=== PATIENT | female | born 1935 | race Caucasian/White ===

== ENCOUNTER → 2017-11-09 12:24 | Outpatient (CLI) | payer MEDICARE, BC, SELFPAY ==
--- NOTE | 2017-11-09 12:49 | US_ITS ---
PROCEDURE: ULTRASOUND GUIDED THORACENTESIS. DATE: November 09, 2017.. INDICATION: Female, 82 years old. Left pleural effusion. PHYSICIAN: Brett Parker M.D. PROCEDURE: The risks, benefits, and alternatives to the procedure were explained to the patient. The specific risks of bleeding, infection, and pneumothorax requiring chest tube insertion were discussed and accepted. Written informed consent was obtained. Ultrasonographic evaluation of the left lower pleural space was carried out. An adequate pocket was identified. The patient was placed in the sitting, upright position. The overlying skin was prepped and draped in sterile fashion. 1% lidocaine was administered subcutaneously for local anesthesia. Under ultrasound guidance, a 6 Faroese thoracentesis needle/catheter system was advanced into the left posterior lower pleural fluid collection. Approximately 1200 mL of rodri-colored fluid was drained. The catheter was removed, and a sterile dressing was applied. The patient tolerated the procedure well. A chest x-ray was ordered. US/Thoracentesis W US IMPRESSION: Ultrasound-guided left thoracentesis. Electronically Signed: Brett Parker MD at 14:27 EST Tel [phone], Service support ,
[2017-11-09 13:03] LABS: International Normalized Ratio 1.4; Prothrombin Time (Protime)PT. 17.4 SECONDS (11.7-14.9)
--- NOTE | 2017-11-09 13:54 | RAD_ITS ---
STUDY: X-RAY CHEST REASON FOR EXAM: Female, 82 years old. Post left thoracentesis examination. TECHNIQUE: Frontal inspiration and expiration views were obtained. COMPARISON: None. FINDINGS: The patient is status post left thoracentesis. There is no pneumothorax. Persistent atelectasis and/or infiltrate is seen in the left lower lobe with blunting of left costophrenic angle. RAD/Chest Insp/Exp 2 View IMPRESSION: No evidence of pneumothorax following the left thoracentesis. Electronically Signed: Brett Parker MD at 14:13 EST Tel [phone], Service support ,
== END ==
PROVIDERS: Family Provider Family Medicine Geriatric Medicine; PCP Family Medicine Geriatric Medicine; Visit Provider Internal Medicine Hematology & Oncology
DX: Z79.01 Long term (current) use of anticoagulants (principal); J91.0 Malignant pleural effusion
CPT/HCPCS: 32555; 36415; 71046; 85610

== ENCOUNTER → 2017-11-13 10:08 | Outpatient (CLI) | payer MEDICARE, BC, SELFPAY | PROVIDERS: Family Provider Family Medicine Geriatric Medicine; PCP Family Medicine Geriatric Medicine; Visit Provider Internal Medicine Hematology & Oncology | DX: Z45.2 Encounter for adjustment and management of vascular access device (principal) | CPT/HCPCS: 96523; A4216 ==

== ENCOUNTER 2017-11-17 11:37 | Day surgery (SDC) | payer MEDICARE, BC, SELFPAY ==
[2017-11-17] VITALS (7 sets, daily range): BP systolic 111–137; BP diastolic 59–76; PULSE 54–64; RESP 16–18; TEMP 35.8–36.4; O2SAT 92–97; BMI 27.1
[2017-11-17 12:16] LABS: Prothrombin Time Fingerstick 18.8 SEC (11.9-14.4)
[2017-11-17 12:45] LABS: Bedside Glucose 187 mg/dL (70-110)
[2017-11-17] MEDS: Clindamycin 600 MG/50 ML BAG 100 MG IV (12:58)
[2017-11-17] MEDS: Bupivacaine Mpf 0.5% 30 ML VIAL (13:15)
--- NOTE | 2017-11-17 13:35 | OP.PCM_ITS ---
Report of Operation Date of Procedure: 11/17/17 Pre-Operative Diagnosis: left malignant pleural effusion Post-Operative Diagnosis: left malignant pleural effusion Surgery/Procedure Performed:: left ultrasound guided tunnelled pleural/pleurex catheter training and quality manager: None Type of Anesthesia:: MAC Anesthesiologist: Mathieu Crook - ASA3 Specimen's removed: 1500 cc left pleural fluid Estimated Blood Loss (mL): minimal Fluids Replaced: 500 Description of Procedure: The patient was brought to the operating suite. The left chest site was marked in the holding area and the patient concurred this was the planned operative site. Sign was performed verifying patient, site, position, skip antibiotic prophylaxis-2 g of Ancef and DVT prophylaxis with SCDs. Ultrasound was used to evaluate the left thoracic space and pleural fluid was noted to be at the planned site which was marked on the skin Following IV sedation, left chest and upper lateral abdomen were prepped and draped in the usual fashion. Timeout was performed verifying patient, site, position. Local anesthetic was injected and a Seldinger needle was used to access the left/right pleural space without difficulty. a guidewire was inserted and advanced into the pleural space. Local anesthetic was injected and incision made for the catheter exit site. Next the catheter was tunneled from the skin exit site to the wire. Dilators were placed over the wire until the largest dilator with introducer sheath were placed. The wire and dilator removed. The catheter was fed through the introducer suture sheath and adjusted to the edge of the pleural surface with the fenestrations . There was good return of pleural fluid. The Pleurx catheter was affixed to an adapter and attached to a Pleur-evac at 20 cm suction. A total of approximately 1500 cc of fluid was drained. The catheter was secured with a 3-0 silk suture at the skin exit site. The thoracic site. Skin was closed with 4-0 Biosyn interrupted subcuticular sutures. Dermabond was applied to the thoracic site. A dressing was applied. The joints were taped and a large dressing placed over the drain exit site. The patient was brought to recovery room in stable condition with plans for a postprocedure chest x-ray. - Admit VTE Documentation VTE Present on Admission: No VTE Mechan Device Prophylaxis: SCD's
--- NOTE | 2017-11-17 13:36 | RAD_ITS ---
STUDY: X-RAY CHEST REASON FOR EXAM: Female, 82 years old. Left-sided chest tube placement. TECHNIQUE: Single AP portable view of the chest. COMPARISON: Comparison is made with prior study dated November 09, 2017. FINDINGS: A left-sided small caliber chest tube is seen paralleling the left hemidiaphragm. The tip is along the medial aspect of the left lower hemithorax. Mild increased markings at the left lung base suggestive of left basilar atelectasis. There is blunting of the right costophrenic angle. The right lung is clear. Normal size heart. Normal mediastinum and alesia. Normal visualized pulmonary arteries. There is atherosclerotic calcification of the aortic arch with tortuosity. There are diffuse degenerative changes of the visualized thoracic spine. Normal visualized ribs, clavicles, and shoulders. There is no demonstrated abnormality of the visualized soft tissue structures of the upper abdomen. RAD/Chest 1 View (Portable) IMPRESSION: A small caliber left-sided chest tube is seen paralleling the left hemidiaphragm. Pleural-parenchymal changes at the left lung base. These have improved as compared to prior examination. Electronically Signed: Brett Parker MD at 14:15 EDT Tel [phone], Service support ,
[2017-11-17 13:51] LABS: Bedside Glucose 177 mg/dL (70-110)
[2017-11-17] MEDS: Ibuprofen 400 MG Tablet PO (17:09)
[2017-11-17 20:51] LABS: Bedside Glucose 181 mg/dL (70-110)
[2017-11-17] MEDS: Pravastatin 80 MG Tablet PO (22:01)
[2017-11-17] MEDS: Zolpidem Tartrate 5 MG Tablet PO (22:01)
[2017-11-18 02:00] VITALS: BP 131/56; PULSE 58; RESP 16; TEMP 36.4; O2SAT 95
--- NOTE | 2017-11-18 06:00 | RAD_ITS ---
STUDY: X-RAY CHEST REASON FOR EXAM: Female, 82 years old. Pleural effusion TECHNIQUE: Single AP portable view of the chest. COMPARISON: 11/17/2017. FINDINGS: Left chest tube remains in place. The lungs are clear and expanded. Small left effusion. Normal size heart. Normal mediastinum and alesia. Normal visualized pulmonary arteries. Normal visualized aortic arch and descending thoracic aorta. Normal visualized thoracic spine. Normal visualized ribs, clavicles, and shoulders. There is no demonstrated abnormality of the visualized soft tissue structures of the upper abdomen. RAD/Chest 1 View (Portable) IMPRESSION: Stable small left effusion. Left chest tube in place. Electronically Signed: Toñito Pillai DO at 6:13 EDT , Service support ,
[2017-11-18] MEDS: Levothyroxine 100 MCG Tablet PO (06:20)
[2017-11-18] MEDS: Ibuprofen 400 MG Tablet PO ×2 (06:21→13:49)
[2017-11-18] MEDS: Lactated Ringers 1,000 ML 30 ML IV (06:31)
--- NOTE | 2017-11-18 07:44 | NURSING ---
Dr. Tubbs in to see this patient. Per Dr. Tubbs, I capped her off and she can go home later. Doctor Suly wants Mrs. Zavala to try one oxy before she goes home to make sure there are no side effects from it.
--- NOTE | 2017-11-18 07:57 | PCM.DC ---
You will use the following diet at home:: No restrictions Discharge Activity: Return to Normal Activity, May not drive while taking narcotic pain medications. Call your doctor if your incision/area has: Continuous Slow Oozing, Increased Redness, Foul Smelling Discharge, Swelling at the incision site Call your doctor if you observe: Fever of 101 or Higher Allergies/Adverse Reactions: Allergies Penicillins [PCN] Allergy (Verified 11/16/17 15:06) Rash Sulfa (Sulfonamide Antibiotics) Allergy (Verified 11/16/17 15:06) Rash rosuvastatin [From Crestor] Adverse Reaction (Mild, Verified 11/16/17 15:06) Other codeine Adverse Reaction (Verified 11/16/17 15:06) Other [employer] hydrocodone Adverse Reaction (Verified 11/16/17 15:06) Other FAST HEART RATE Medications to take at Discharge warfarin 2 mg tablet 4 mg PO SUMOTUTHFRSA 10/02/17 Atenolol [Tenormin (beta obed)] 50 mg PO DAILY 11/16/17 Calcium Carbonate [Calcium] 600 mg PO DAILY 11/16/17 Ergocalciferol [Vitamin D] 50,000 unit PO Q7D 11/16/17 Levothyroxine [Synthroid] 100 mcg PO DAILY 11/16/17 [place]-3 Fatty Acids [Fish Oil] 600 mg PO DAILY 11/16/17 Pravastatin [Pravachol] 80 mg PO QHS 11/16/17 Warfarin [Coumadin] 2 mg PO WE 11/16/17 Zolpidem Tartrate [Ambien] 5 mg PO QHS PRN PRN 11/16/17 Calcium (Elemental) [Os-Manuel 500] 500 mg PO DAILY@1200 tablet 11/18/17 Ibuprofen [Motrin] 400 mg PO Q4H PRN PRN tablet 11/18/17 Oxycodone [Oxyir] 5 mg PO Q4H PRN PRN #16 tab 11/18/17 The following prescriptions were given: Oxycodone [Oxyir] 5 mg PO Q4H PRN PRN #16 tab PRN Reason: Severe Pain (6-10) Primary Care Physician: Tj Martin Chi, MD [Primary Care Provider] - Please Follow Up With: Vitaly Tubbs MD - bring pleurex kits to office When: monday
[2017-11-18 08:35] VITALS: PULSE 58
[2017-11-18] MEDS: oxyCODONE 5 MG Tablet PO (08:46)
[2017-11-18] MEDS: Atenolol 50 MG Tablet PO (08:58)
[2017-11-18 09:03] VITALS: BP 147/63; PULSE 58; RESP 20; TEMP 36.9; O2SAT 96
--- NOTE | 2017-11-18 09:03 | PCM.DC.SUM ---
Discharge Date and Diagnosis Date of Admission: 11/17/17 Date of Discharge: 11/18/17 - Primary Discharge Diagnosis left lung cancer. Left malignant pleural effusion Hospital Course and Treatment Imaging Results: 11/18/17 06:00 CXR [Chest 1 View (Portable)] [RAD] Urgent Operations: - - left tunneled thoracic catheter placement Summary of Care Provided: The patient is a 82 year old F with recurring left pleural effusion who is admitted for left tunneled thoracic catheter placement. 1500 cc of fluid was drained during the operative procedure. An additional 200 cc was drained overnight with the pleural tube placed on 20 mm suction. The patient is doing well postoperatively and able to be discharged home today with plans to follow-up in my office on Monday for Pleurx bottle drainage. Discharge Activity: Return to Normal Activity, May not drive while taking narcotic pain medications. Call your doctor if your incision/area has: Continuous Slow Oozing, Increased Redness, Foul Smelling Discharge, Swelling at the incision site Call your doctor if you observe: Fever of 101 or Higher Home Medications: Medications to take at Discharge warfarin 2 mg tablet 4 mg PO SUMOTUTHFRSA 10/02/17 Atenolol [Tenormin (beta obed)] 50 mg PO DAILY 11/16/17 Calcium Carbonate [Calcium] 600 mg PO DAILY 11/16/17 Ergocalciferol [Vitamin D] 50,000 unit PO Q7D 11/16/17 Levothyroxine [Synthroid] 100 mcg PO DAILY 11/16/17 [place]-3 Fatty Acids [Fish Oil] 600 mg PO DAILY 11/16/17 Pravastatin [Pravachol] 80 mg PO QHS 11/16/17 Warfarin [Coumadin] 2 mg PO WE 11/16/17 Zolpidem Tartrate [Ambien] 5 mg PO QHS PRN PRN 11/16/17 Calcium (Elemental) [Os-Manuel 500] 500 mg PO DAILY@1200 tablet 11/18/17 Ibuprofen [Motrin] 400 mg PO Q4H PRN PRN tablet 11/18/17 Oxycodone [Oxyir] 5 mg PO Q4H PRN PRN #16 tab 11/18/17 Following Prescrptions Were Given to Patient: Oxycodone [Oxyir] 5 mg PO Q4H PRN PRN #16 tab PRN Reason: Severe Pain (6-10/10) Primary Care Physician: Tj Martin Chi, MD [Primary Care Provider] - Please Follow Up With: Vitaly Tubbs MD - bring pleurex kits to office When: monday Medical Necessity - Tobacco Use Smoking Status: Never smoker Meaningful Use Info Meaningful Use Diagnoses (Choose all that apply): None applicable
[2017-11-18 09:35] VITALS: BP 97/57; PULSE 47; RESP 14; TEMP 36.9; O2SAT 96
--- NOTE | 2017-11-18 09:44 | NURSING ---
Pt felt woozy after walking to the bathroom. CLEANING PORTER was with pt and pt started to pass out in front of coordinator of genetic services. This nurse came in room and was already talking again. Did not like the feeling of the pain medication that it was giving her. BP was taken while sitting up on the toilet. 97/57, Hr 50. Pt assisted into wc and on the way to bed, pt passed out again. Layed in bed, Positioned bed in [place] position and applied O2 at 2L via NC. Pt awakened after several seconds, talking to staff. Pt also broke out in a sweat while on toilet. This nurse in room with pt at this time.
[2017-11-18 09:51] VITALS: BP 119/52; PULSE 48; RESP 15; TEMP 36.9; O2SAT 96
--- NOTE | 2017-11-18 10:14 | NURSING ---
DR. Tubbs aware that pt passed out. 500cc bolus ordered at this time.
[2017-11-18] MEDS: Lactated Ringers 500 ML 999 ML IV (10:50)
== END 2017-11-18 14:09 | disposition home or self-care (01) ==
LOC: SDC 11:37 → AC 11:43 → MS3 13:14
PROVIDERS: Family Provider Family Medicine Geriatric Medicine; PCP Family Medicine Geriatric Medicine; Visit Provider Surgery
PROC: (CPT 32550; principal; 2017-11-17 12:20)
DX: Z46.82 Encounter for fitting and adjustment of non-vascular catheter (principal); C34.92 Malignant neoplasm of unspecified part of left bronchus or lung; J91.0 Malignant pleural effusion; E11.9 Type 2 diabetes mellitus without complications; I48.0 Paroxysmal atrial fibrillation; I10 Essential (primary) hypertension; I27.20 Pulmonary hypertension, unspecified; Z86.73 Personal history of transient ischemic attack (TIA), and cerebral infarction without residual deficits; E78.00 Pure hypercholesterolemia, unspecified; Z79.899 Other long term (current) drug therapy; Z79.01 Long term (current) use of anticoagulants
CPT/HCPCS: 00520; 32550; 36416; 71045; 82962; 85610; J7120; A4216; C1729

== ENCOUNTER → 2017-11-20 09:31 | Outpatient (CLI) | payer MEDICARE, BC, SELFPAY ==
--- NOTE | 2017-11-20 09:00 | PET_ITS ---
EXAMINATION: FDG PET-CT INDICATIONS: An 82-year-old female with reported history of carcinoma of the lung presenting for initial staging examination. COMPARISON EXAMINATION: None available INDEX LESION SIZE SUV INTERPRETATION Left mid anterior hemithorax pulmonary parenchyma, left upper lobe 15.3-mm (frame 213) 2.5 Fulfills quantitative criteria for viable neoplasm NON-INDEX LESION SIZE SUV INTERPRETATION Left hemithorax pleural interface 1.7 Quantitative criteria for viable neoplasm are not fulfilled TECHNIQUE: Following the intravenous administration of 14.92 mCi of F-18 deoxyglucose via the right antecubital fossa, multiplanar image acquisitions of the neck, chest, abdomen and pelvis to level of mid thigh, obtained at one hour post radiopharmaceutical administration contemporaneously interpreted with the current CT of the neck, chest, abdomen and pelvis, to level of mid thigh, dated 11/20/17 via coregistration reveals: Blood glucose level:?? 152 mg/dl?Height:?66 inches?Weight: 170 lbs. FINDINGS: 1. A nodular focus of enhanced glucose metabolism is demonstrated in the left mid anteromedial hemithorax pulmonary parenchyma, left upper lobe, generating a corrected maximum calculated standard uptake value of 2.5. The maximal axial diameter of the corresponding parenchymal density on review of CT of the thorax dated 11/20/17 is 15.3-mm (transverse). 2. An increase in glucose metabolism is diffusely apparent throughout the left hemithorax at the pleural interface generating a corrected maximum calculated standard uptake value of 1.7. 3. Normal physiologic distribution of the radiopharmaceutical is apparent in the hepatic (3.6) and splenic parenchyma, both renal units, bladder and visualized intestinal tract. The visualized portion of the cerebral cortex demonstrate symmetric and preserved glucose metabolism. Diffuse radiopharmaceutical concentration is noted in all four quadrants of the abdomen and pelvis. Pertinent CT findings are as follows: CHEST: Emphysematous change is noted in the bilateral upper-mid lung zones. A loculated left hemithorax pleural effusion demonstrates no evidence of quantitatively significant increased glucose metabolism. There is atherosclerotic calcification defined in the thoracic aorta without evidence of dilatation-aneurysm formation. Coronary arterial calcification is observed. Right-left axillary soft tissue densities with fatty hilus formation are non-glucose avid. There are no additional parenchymal densities-nodules noted in the right-left hemithorax manifesting quantitatively significant increased glucose metabolism. Catheter placement is noted within the left hemithorax. ABDOMEN AND PELVIS: Retained oral contrast material is noted in the visualized intestinal tract. There is atherosclerotic calcification defined in the abdominal aorta without evidence of dilatation-aneurysm formation. Pelvic arterial calcification is noted. Calcified granuloma formation is evident in the hepatic parenchyma. Right-left inguinal soft tissue densities are ametabolic. SKELETAL: Degenerative changes are noted in the cervical, thoracic and lumbar spine. PET/PET/CT Tumor Base -Thigh Init IMPRESSION: 1. ABNORMAL EXAMINATION INDICATIVE OF MALIGNANT VIABLE NEOPLASM. 2. Increased glucose concentration observed in the left hemithorax pulmonary parenchyma, left upper lobe, fulfills quantitative criteria for viable neoplasm. (Ramirez et al, Annals of Internal Medicine, 138:724, 2003). 3. Enhanced glucose concentration observed in the left hemithorax at the pleural interface does not fulfill quantitative criteria for viable neoplasm. (Cardoso, et al, Chest 122:1918, 2002). Electronic Signature Vitaly Lovell D.O. Electronically Signed: Vitaly Lovell DO at 23:20 EDT Tel , Service support ,
== END ==
PROVIDERS: Family Provider Family Medicine Geriatric Medicine; PCP Family Medicine Geriatric Medicine; Visit Provider Internal Medicine Hematology & Oncology
DX: C33 Malignant neoplasm of trachea (principal); C34.90 Malignant neoplasm of unspecified part of unspecified bronchus or lung; J91.0 Malignant pleural effusion
CPT/HCPCS: 78815; A9552; A4216

== ENCOUNTER → 2018-01-01 09:52 | Outpatient (CLI) | payer MEDICARE, BC, SELFPAY ==
[2018-01-01 10:20] LABS: International Normalized Ratio 1.6; Prothrombin Time (Protime)PT. 19.1 SECONDS (11.7-14.9)
== END ==
PROVIDERS: Family Provider Family Medicine Geriatric Medicine; PCP Family Medicine Geriatric Medicine; Visit Provider Family Medicine Geriatric Medicine
DX: I48.2 Chronic atrial fibrillation (principal); Z79.01 Long term (current) use of anticoagulants; C33 Malignant neoplasm of trachea; C34.80 Malignant neoplasm of overlapping sites of unspecified bronchus and lung; E03.9 Hypothyroidism, unspecified
CPT/HCPCS: 85610

== ENCOUNTER → 2018-02-12 11:08 | Outpatient (CLI) | payer MEDICARE, BC, SELFPAY ==
--- NOTE | 2018-02-12 11:08 | DT_ITS ---
This patient was seen during an EMR downtime February 05, 2018 - February 12, 2018. This patient may have a combination of paper and electronic documentation or all paper documentation. All documentation is viewable within the e-chart portion of [facility] for each patient visit.
[2018-02-12 11:25] LABS: International Normalized Ratio 1.8; Prothrombin Time (Protime)PT. 20.5 SECONDS (11.7-14.9)
== END ==
PROVIDERS: Visit Provider Internal Medicine Hematology & Oncology
DX: I48.2 Chronic atrial fibrillation (principal); Z79.01 Long term (current) use of anticoagulants
CPT/HCPCS: 85610

== ENCOUNTER → 2018-03-02 12:12 | Outpatient (CLI) | payer MEDICARE, BC, SELFPAY ==
[2018-03-02 12:59] LABS: International Normalized Ratio 2.2; Prothrombin Time (Protime)PT. 24.5 SECONDS (11.7-14.9)
== END ==
PROVIDERS: Visit Provider Internal Medicine Hematology & Oncology
DX: C33 Malignant neoplasm of trachea (principal); C34.80 Malignant neoplasm of overlapping sites of unspecified bronchus and lung; I47.1 Supraventricular tachycardia
CPT/HCPCS: 85610

== ENCOUNTER → 2018-03-26 10:30 | Outpatient (CLI) | payer MEDICARE, BC, SELFPAY ==
[2018-03-26 10:45] LABS: International Normalized Ratio 2.3; Prothrombin Time (Protime)PT. 25.2 SECONDS (11.7-14.9)
== END ==
PROVIDERS: Visit Provider Internal Medicine Hematology & Oncology
DX: C33 Malignant neoplasm of trachea (principal); C34.80 Malignant neoplasm of overlapping sites of unspecified bronchus and lung; J91.0 Malignant pleural effusion
CPT/HCPCS: 85610

== ENCOUNTER → 2018-07-04 09:40 | Outpatient (CLI) | payer MEDICARE, BC, SELFPAY ==
[2018-07-04 12:31] LABS: Absolute Lymphocyte Count 2.42 X10^3/ul (0.83-4.51); Absolute Neutrophil Count 8.6 X10^3/uL (2.0-7.7); Basophil# 0.01 X10^3/uL; Basophil% 0.1 % (0-1); Hematocrit 40.9 % (37-47); Hemoglobin 13.2 g/dl (12.0-15.0); Lymphocyte # 2.42 X10^3/ul (4.0); Lymphocyte % 20.5 % (19-41); Mean Corp Hgb Conc 32.3 g/gl (32-36); Mean Platelet Vol. 10.1 fl (6.2-12.0); Monocyte# 0.82 X10^3/uL; Monocyte% 6.9 % (0-10); Neutrophil # 8.55 X10^3/uL (2.7-7.7); Neutrophil % 72.3 % (47-70); Platelet Count 379 K/mm3 (150-450); RBC Distribution Width CV 13.8 % (11.6-14.6); RBC Distribution Width SD 47.8 fl (35.1-43.9); Red Blood Count 4.26 M/mm3 (4.2-5.4); White Blood Count 11.8 K/mm3 (4.4-11.0)
[2018-07-04 12:34] LABS: POSITIVE COUNT NO; POSITIVE DIFFERENTIAL NO; POSITIVE MORPHOLOGY NO
[2018-07-04 12:51] LABS: Vitamin D,25 Hydroxy 77.2 ng/mL (29.95-100.01)
[2018-07-04 13:14] LABS: ALB/GLOB Ratio 0.8 RATIO (0.9-2.4); AST(SGOT) 22 U/L (15-37); Alanine Aminotransfer ALT/SGPT 37 U/L (13-56); Albumin, Serum 2.9 g/dL (3.2-5.0); Alkaline Phosphatase 96 U/L (45-117); Anion Gap 9 (5-15); BUN 19 mg/dL (7-18); BUN/Creat Ratio 21.6 RATIO (10-20); Calcium,Total 8.6 mg/dL (8.5-10.1); Chloride 99 mmol/L (98-107); Creatinine, Serum 0.88 mg/dL (0.55-1.02); EST Glomerular Filtration Rate 66 mL/min (>60); Est Glom Filt Rate - Afr Amer 79 mL/min (>60); Globulin 3.8 g/dL (2.2-4.2); Glucose 103 mg/dL (74-106); Protein, Total 6.7 g/dL (6.4-8.2); Sodium Level 137 mmol/L (136-145); Thyroid Stim Hormone (TSH) 0.59 uIU/mL (0.358-3.74)
== END ==
PROVIDERS: Visit Provider Family Medicine Geriatric Medicine
DX: E11.9 Type 2 diabetes mellitus without complications (principal); E55.9 Vitamin D deficiency, unspecified; I10 Essential (primary) hypertension
CPT/HCPCS: 36415; 80053; 82306; 84443; 85025

== ENCOUNTER → 2018-11-20 09:17 | Outpatient (CLI) | payer MEDICARE, BC, SELFPAY ==
[2018-09-27 14:29] VITALS: BMI 25.4
[2018-11-20 09:43] LABS: International Normalized Ratio 1.7; Prothrombin Time (Protime)PT. 20.2 SECONDS (11.7-14.9)
== END ==
PROVIDERS: Referring Provider Internal Medicine Hematology & Oncology; Visit Provider Internal Medicine Hematology & Oncology
DX: I47.1 Supraventricular tachycardia (principal)
CPT/HCPCS: 85610

== ENCOUNTER → 2018-12-12 08:10 | Outpatient (CLI) | payer MEDICARE, BC, SELFPAY ==
[2018-09-27 14:29] VITALS: BMI 25.4
--- NOTE | 2018-12-12 | FLU_PTH ---
PATIENT: CUBA DAMIAN LOC: [facility] U#:[id number] AGE/SX: 89/F ROOM: RE12/12/[address]: Dr. Sukhwinder Murrieta MD : [id number] BED: DIS: SPEC #: [id number] RECD: 12/12/18 17:20 STATUS: BREN EITAN #: [id number] TAHMINA: 12/12/18 00:[address]: Sukhwinder Murrieta DEPT: CYTOLOGY RECD BY: Tre Myers Tissues: Neck, NOS Procedures: Special Stain Group II Surgery Specimen Level IV Cytospin Fluid HEADER OPERATION: Not noted PRE-OP DIAGNOSIS: Left neck mass; history of lung adenocarcinoma TISSUE SUBMITTED: Left neck mass fluid for cytology DIAGNOSIS CYTOLOGY Fine needle aspiration, left neck mass (cytospin and cell block): Negative for malignant cells. See comment. AM:marcin 12/14/18 COMMENT The specimen contains blood and scattered white blood cells. Clinical correlation is necessary. CYTOLOGY STUDY Slides are reviewed. CYTOLOGY GROSS Received is 30 ml of red cloudy fluid labeled with the patient's name and and designated per the requisition as left neck mass. Submitted for cytology preparation including cell block. / 12/13/18 TC:5 CPT: 90899, 16805
== END ==
PROVIDERS: Referring Provider Otolaryngology; Visit Provider Otolaryngology
DX: R22.1 Localized swelling, mass and lump, neck (principal); Z85.118 Personal history of other malignant neoplasm of bronchus and lung
CPT/HCPCS: 88108; 88305; 88313

== ENCOUNTER 2018-12-14 15:03 | Emergency (ER) | payer MEDICARE, BC, SELFPAY ==
[2018-09-27 14:29] VITALS: BMI 25.4
[2018-12-14 15:03] VITALS: BP 145/104; PULSE 79; RESP 18; TEMP 36.7; O2SAT 94; BMI 25.2
--- NOTE | 2018-12-14 15:09 | RAD_ITS ---
STUDY: X-RAY CHEST REASON FOR EXAM: Female, 83 years old. Cough. TECHNIQUE: PA and lateral views of the chest. COMPARISON: Comparison is made with prior study dated November 18, 2017. FINDINGS: Hyperinflation. Mild residual increased markings at the lung bases suggestive of scarring. No acute infiltration is seen. Scattered calcified granulomas. Stable blunting of the costophrenic angles bilaterally. Normal size heart. Normal mediastinum and alesia. Normal visualized pulmonary arteries. Normal visualized aortic arch and descending thoracic aorta. There are diffuse degenerative changes of the visualized thoracic spine. Normal visualized ribs, clavicles, and shoulders. There is no demonstrated abnormality of the visualized soft tissue structures of the upper abdomen. RAD/Chest PA and Lateral IMPRESSION: Hyperinflation. Findings suggestive of scarring at the lung bases with blunting of both costophrenic angles. Electronically Signed: Brett Parker, at 15:36 EDT , Service support ,
[2018-12-14 15:47] VITALS: BP 158/70; RESP 14; O2SAT 97
[2018-12-14 15:48] VITALS: O2SAT 97
--- NOTE | 2018-12-14 15:51 | VDLE_ITS ---
Reason For Study: PAIN RIGHT LEFT GSV is normal. GSV is normal. CFV is compressible, spontaneous, phasic, CFV is compressible, spontaneous, phasic, competent and demonstrates normal competent, and demonstrates normal augmentation. augmentation. FV is compressible, spontaneous, phasic, FV is compressible, spontaneous, phasic, competent and demonstrates normal competent and demonstrates normal augmentation. augmentation. POP V is compressible, spontaneous, phasic, POP V is compressible, spontaneous, phasic, competent and demonstrates normal competent and demonstrates normal augmentation. augmentation. T/P Trunk is compressible. Left T/P Trunk is dilated and PTV is compressible. NONCOMPRESSIBLE. RT PeroV is dilated and NONCOMPRESSIBLE. Left PTV and PeroV are dilated and RT SSV is dilated and NONCOMPRESSIBLE. NONCOMPRESSIBLE. Procedure Left Gastroc V is dilated and Exam performed portable in ED. NONCOMPRESSIBLE. A preliminary report was called and/or faxed to ED. Interpretation Summary Acute deep venous thrombosis right peroneal Superficial thrombophlebitis right small saphenous vein Acute deep venous thrombosis left tibioperoneal trunk, posterior tibial, peroneal and gastrocnemius veins. Patent and compressible bilateral great saphenous veins. Ordering Physician: Amber Zazueta Performed By: Ashlyn Fiore RDCS, RVT
--- NOTE | 2018-12-14 15:51 | EKG12_ITS ---
Test Reason : SOB Blood Pressure : / mmHG Vent. Rate : 079 BPM Atrial Rate : 079 BPM P-R Int : 204 ms QRS Dur : 074 ms QT Int : 396 ms P-R-T Axes : 046 042 045 degrees QTc Int : 454 ms Normal sinus rhythm Normal ECG Confirmed by JOHNNY BERG ([id number]), supervising film or videotape editor ANDERSON CAGE ([id number]) on 12/17/2018 4:43:18 PM Referred By: KALEB/DEEPAK Confirmed By:JOHNNY BERG
--- NOTE | 2018-12-14 15:55 | ED.DCSUM_ITS ---
- ER Visit Summary Date of Service: 12/14/18 Chief Complaint: Shortness of breath History of Present Illness: The patient is a 83 F presenting with shortness of breath. She states this has been ongoing for the past 2 days. Cough is worsened with laying flat. Symptoms are not worsened with exertion. She has history of lung cancer and is on Keytruda. She states they held her last dose due to her cough and diarrhea. She has been having diarrhea once a day for the past 3 weeks. She states she takes Imodium once a day. She had chemotherapy-induced pneumonitis approximately 5 months ago. This was treated with prednisone. She is not on home O2. She denies chest pain or fever. She has had a dry cough. Denies abdominal pain, nausea, vomiting. Denies blood in her stool. Denies other complaints. Physical Examination: Vitals are stable. Patient is afebrile. Alert no acute distress. 97% on room air. HEENT exam is unremarkable. Neck is supple. Lungs are clear and equal bilaterally. Heart is regular rate and rhythm. Abdomen is soft nontender nondistended. Extremities are mild bilateral calf tenderness. Normal pulses Skin is warm and dry. No focal neurologic deficit. Remainder of exam is unremarkable. Emergency Department Course and Treatment: EKG is sinus rate of 79 with no acute ischemic changes. Chest x-ray shows hyperinflation. Findings suggestive of scarring at the lung bases with blunting of both costophrenic angles. CBC, chemistries unremarkable other than glucose 279. INR 1.9. Troponin negative. BNP 82.2. With ambulation her pulse ox is 94% on room air. Venous Doppler bilateral lower extremity shows DVT below the knee bilaterally. Patient denies chest pain. She is not hypoxic or tachycardic in the emergency department. Discussed with Dr. Rios. She was offered admission. She declines and states she needs to care for her . She was started on Eliquis 5 mg twice daily per Dr. Rios as well as doxycycline for bronchitis. She is advised to return to the ED if she has any worsening complaints. Advised to follow-up with Dr. Rios. Disposition: Discharge home Impression: Dyspnea, bronchitis, bilateral lower extremity DVT This note was generated with Tel[employer] software. It may contain incorrect words, spelling, and punctuation that were not noted in review of the chart prior to signing ED Disposition - Plan for ED Patient: Instructions: Acute Bronchitis, ED DVT Prescriptions: Apixaban [Eliquis] 5 mg PO BID #60 tablet Doxycycline 100 mg PO BID #20 capsule Referrals: Gayatri Duque MD [Primary Care Provider] - Humberto Rios DO [STAFF PHYSICIAN] -
[2018-12-14 16:02] VITALS: O2SAT 94
[2018-12-14 16:28] LABS: Absolute Lymphocyte Count 1.61 X10^3/ul (0.83-4.51); Absolute Neutrophil Count 7.8 X10^3/uL (2.0-7.7); Basophil# 0.04 X10^3/uL; Basophil% 0.4 % (0-1); Eosinophil# 0.29 X10^3/uL; Eosinophils% 2.7 % (0-5); Hematocrit 38.6 % (37-47); Hemoglobin 12.9 g/dl (12.0-15.0); Lymphocyte # 1.61 X10^3/ul (4.0); Lymphocyte % 15.2 % (19-41); Mean Corp Hgb Conc 33.4 g/gl (32-36); Mean Corpuscular Hgb 30.3 pg (27.0-32.0); Mean Corpuscular Volume 90.6 fL (81-99); Mean Platelet Vol. 9.3 fl (6.2-12.0); Monocyte# 0.86 X10^3/uL; Monocyte% 8.1 % (0-10); Neutrophil # 7.79 X10^3/uL (2.7-7.7); Neutrophil % 73.5 % (47-70); Platelet Count 293 K/mm3 (150-450); RBC Distribution Width CV 12.9 % (11.6-14.6); RBC Distribution Width SD 42.3 fl (35.1-43.9); Red Blood Count 4.26 M/mm3 (4.2-5.4); White Blood Count 10.6 K/mm3 (4.4-11.0)
[2018-12-14 16:29] LABS: POSITIVE COUNT NO; POSITIVE DIFFERENTIAL NO; POSITIVE MORPHOLOGY NO
[2018-12-14 16:45] VITALS: BMI 25.2
[2018-12-14 16:51] LABS: Anion Gap 5 (5-15); BUN 12 mg/dL (7-18); BUN/Creat Ratio 13.3 RATIO (10-20); Calcium,Total 8.5 mg/dL (8.5-10.1); Chloride 104 mmol/L (98-107); EST Glomerular Filtration Rate 63 mL/min (>60); Est Glom Filt Rate - Afr Amer 77 mL/min (>60); Estimated Creatinine Clearance 45.12 ml/min; Glucose 279 mg/dL (74-106); Potassium 4.1 mmol/L (3.5-5.1); Sodium Level 138 mmol/L (136-145)
[2018-12-14 16:56] LABS: BNP,B-Type NATRIURETIC PEPTIDE 82.2 pg/mL (0-100)
[2018-12-14 17:31] LABS: International Normalized Ratio 1.9; Prothrombin Time (Protime)PT. 21.6 SECONDS (11.7-14.9)
[2018-12-14 18:08] VITALS: PULSE 71; RESP 19; O2SAT 95
--- NOTE | 2018-12-14 18:28 | ED.DEP ---
ED Disposition - Plan for ED Patient: Instructions: ED DVT, Acute Bronchitis Prescriptions: Apixaban [Eliquis] 5 mg PO BID #60 tablet Doxycycline 100 mg PO BID #20 capsule Referrals: Gayatri Duque MD [Primary Care Provider] - Humberto Rios DO [STAFF PHYSICIAN] -
[2018-12-14] MEDS: Doxycycline 100 MG CAPSULE PO (18:35)
--- NOTE | 2018-12-14 18:41 | ED.DEP ---
ED Disposition - Plan for ED Patient: Instructions: Acute Bronchitis, ED DVT Prescriptions: Benzonatate [Tessalon Perle] 200 mg PO TID PRN PRN #20 capsule PRN Reason: Cough Apixaban [Eliquis] 5 mg PO BID #60 tablet Doxycycline 100 mg PO BID #20 capsule Referrals: Gayatri Duque MD [Primary Care Provider] - Humberto Rios DO [STAFF PHYSICIAN] -
[2018-12-14] MEDS: APIXABAN 5 MG TABLET PO (19:17)
[2018-12-14 19:18] VITALS: BP 166/67; PULSE 71; RESP 18; O2SAT 96
== END 2018-12-14 19:19 | disposition home or self-care (01) ==
PROVIDERS: Emergency Provider Emergency Medicine; Family Provider Family Medicine; PCP Family Medicine
DX: I82.493 Acute embolism and thrombosis of other specified deep vein of lower extremity, bilateral (principal); J40 Bronchitis, not specified as acute or chronic; R06.00 Dyspnea, unspecified; C34.90 Malignant neoplasm of unspecified part of unspecified bronchus or lung; I10 Essential (primary) hypertension; E11.9 Type 2 diabetes mellitus without complications; Z79.4 Long term (current) use of insulin; Z79.899 Other long term (current) drug therapy
CPT/HCPCS: 71046; 80048; 83880; 84484; 85025; 85610; 93005; 93970; 99285; A4216

== ENCOUNTER 2018-12-24 15:28 | Inpatient (IN) | payer MEDICARE, BC, SELFPAY ==
[2018-12-24] VITALS (9 sets, daily range): BP systolic 111–145; BP diastolic 55–75; PULSE 67–80; RESP 16–18; TEMP 36.9; O2SAT 93–98; BMI 25.0; BMI 24.7
--- NOTE | 2018-12-24 16:11 | EKG12_ITS ---
Test Reason : NEUROS/SX Blood Pressure : / mmHG Vent. Rate : 072 BPM Atrial Rate : 072 BPM P-R Int : 194 ms QRS Dur : 078 ms QT Int : 412 ms P-R-T Axes : 057 045 039 degrees QTc Int : 451 ms Normal sinus rhythm Normal ECG Confirmed by RAQUEL PANTOJA, MATTHEW ([id number]), editorial director TAYLOR SILVERMAN ([id number]) on 12/26/2018 1:30:44 PM Referred By: STEPHON Confirmed By:MATTHEW GARCÍA MD
--- NOTE | 2018-12-24 16:11 | CT_ITS ---
STUDY: CT BRAIN WITHOUT CONTRAST REASON FOR EXAM: Female, 83 years old. Left visual disturbance. RADIATION DOSAGE (If Supplied By Facility): CTDIvol = ( 44.99 ) mGy, DLP = ( 762.36 ) mGycm TECHNIQUE: Transaxial CT imaging of the brain was performed without administration of intravenous contrast material. Individualized dose optimization techniques were used for this CT. COMPARISON: No relevant priors. FINDINGS: Normal soft tissue structures. Normal calvarium. There is mild cerebral atrophy with widening of the extra-axial spaces and ventricular dilatation. There are areas of decreased attenuation within the white matter tracts of the supratentorial brain, consistent with microvascular disease changes. Normal basal ganglia and thalami. Normal brainstem. Normal cerebellum. There is no intracranial hemorrhage. There are no findings of an acute ischemic infarction. Normal visualized paranasal sinuses. CT/Brain/Head without Contrast IMPRESSION: Chronic involutional changes of the brain. Electronically Signed: Susan Bailey MD at 17:46 EDT Tel , Service support ,
--- NOTE | 2018-12-24 16:14 | ED.VIS.STROK ---
History of Present Illness Chief Complaint: Eye Problem Informant: Patient, Family Onset: Today Context: Sudden Onset Timing: Intermittent - Duration 15-30 minutes Quality and Location: - - Transient visual disturbance left eye only. Onset: 30 minutes after awakening this morning, 08 Current Severity: Gone - Presently patient has no symptoms Maximum Severity: Moderate Worsened by: Nothing Relieved by: Nothing Associated Symptoms: - - No trouble with ambulation. 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 She was diagnosed with lung cancer 1 year ago. She has a history of atrial Patient denied headache, trouble with speech or swallowing. She denies paresthesia, anesthesia motor weakness. She denied problems with balance or walking. Fibrillation. Her oncologist is Dr. Humberto Rios. Her manager corporate communications is Dr. Solomon Fuentes. 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 Rios (8) Transient ischemic attack due to embolism Status: Chronic (9) cataract Status: Resolved Past Medical History - Allergies and Home Meds Allergies/Adverse Reactions: Allergies amoxicillin Allergy (Severe, Verified 12/24/18 15:28) Large hives oxycodone [From OxyIR] Allergy (Verified 12/24/18 15:28) Other passed out, low BP, sylvia Penicillins [PCN] Allergy (Verified 12/24/18 15:28) Rash Sulfa (Sulfonamide Antibiotics) Allergy (Verified 12/24/18 15:28) Rash rosuvastatin [From Crestor] Adverse Reaction (Mild, Verified 12/24/18 15:28) Other codeine Adverse Reaction (Verified 12/24/18 15:28) Other IRREG HEART BEAT hydrocodone Adverse Reaction (Verified 12/24/18 15:28) Other FAST HEART RATE Primary Care Physician: Gayatri Duque MD [Primary Care Provider] - Prior records reviewed: Yes Surgical History: noncontributory Lives: Alone Smoking Status: Never smoker Alcohol: None Drugs: None Review of Systems General: Denies: Chills, Fever, Sweats Eyes: Reports: Visual changes - left. Denies: Blurred vision - left, Diplopia ENT: Denies: Bilateral ear pain, Rhinorrhea, Sore throat Cardiovascular: Denies: Chest pain, Palpitations, Heart racing - . Respiratory: Denies: Dyspnea, Cough, Dyspnea on exertion Gastrointestinal: Denies: Abdominal pain, Nausea, Vomiting, Diarrhea, Melena, Hematochezia Genitourinary: Denies: Dysuria, Hematuria, Frequency Musculoskeletal: Denies: Back pain, Extremity Pain Skin: Denies: Rash, Wounds Neurological: Denies: Headache, Weakness, Numbness Hematologic: Denies: Easy bruising, Easy bleeding Allergy: Denies: Uticaria, Swelling of the mouth Physical Exam Vital Signs/Narrative: Vital Signs Temp Pulse Resp BP Pulse Ox 12/24/18 15:29 98.4 F 80 17 134/75 H 96 Inital Vital Signs reviewed: Yes - NIH Stroke Scale 1a Level of Consciousness: 0 1b LOC Questions (Score 2 if aphasic/stupor): 0 1c LOC Commands (Only score 1st attempt): 0 2 Best Gaze (If aphasic, use reflexive mvmts.): 0 3 Visual: 0 4 Facial Palsy: 0 5 Motor Arm Right (UN = amputation/fusion): 0 5 Motor Arm Left: 0 6 Motor Leg Right: 0 6 Motor Leg Left: 0 7 Limb ataxia (Only + if out of proportion): 0 8 Sensory (Aphasia/stupor=0 or 1, coma=2): 0 9 Best Language: 0 10 Dysarthria (mute, coma=2, intubated=UN): 0 11 Extinction and Inattention (only scored if +): 0 Total Score: 0 General: Well nourished, Well developed Head: Normocephalic, Atraumatic Eyes: Perrl, EOMI, - - Left eye is dilated. She was sent from magnaflux operator office. She had her eyes dilated. He noted no abnormality on funduscopic exam. There was no visual field cuts. ENT: Moist mucous membranes, No rhinorrhea Neck: Supple, Nontender, No lymphadenopathy, No JVD Cardiovascular: Regular rate, Regular rhythm, No murmurs, Normal S1 Respiratory: No distress, CTA bilaterally, Chest nontender Abdomen: Soft, Nontender, Nondistended, Normal bowel sounds Back: Nontender, Normal Inspection Extremities: Nontender, No edema Skin: Normal color, No rash Neurological: Alert, Oriented x3, Cranial nerves II-XII grossly intact, Normal Strength, Normal Sensation, Normal DTR, Normal Gait Psychological: Normal affect Diagnostic/Tx/Re-eval Impressions Brain CT 12/24/18 16:11 IMPRESSION: Chronic involutional changes of the brain. Electronically Signed: Susan Bailey MD at 17:46 EDT Tel , Service support , 12/24/18 16:11 Brain/Head without Contrast [CT] Stat Laboratory Results 12/24/18 12/24/18 12/24/18 16:21 16:23 16:23 WBC 11.2 H RBC 4.17 L Hgb 12.5 Hct 37.9 MCV 90.9 MCH 30.0 MCHC 33.0 RDW 13.2 RDW Differential 43.2 Plt Count 271 MPV 8.9 Immature Gran % (Auto) 0.200 Neut % (Auto) 74.4 H Lymph % (Auto) 13.4 L [place] % (Auto) 9.8 Eos % (Auto) 1.8 Baso % (Auto) 0.4 Absolute Neuts (auto) 8.3 H Absolute Lymphs (auto) 1.49 Total Counted Not Reportable PT 16.8 H INR 1.4 APTT 32.8 Sodium Potassium Chloride Carbon Dioxide Anion Gap BUN Creatinine Estim Creat Clear Calc Est GFR (MDRD) Af Amer Est GFR (MDRD) Non-Af BUN/Creatinine Ratio Glucose Calcium Troponin I POC Glucose 303 H 12/24/18 16:23 WBC RBC Hgb Hct MCV MCH MCHC RDW RDW Differential Plt Count MPV Immature Gran % (Auto) Neut % (Auto) Lymph % (Auto) [place] % (Auto) Eos % (Auto) Baso % (Auto) Absolute Neuts (auto) Absolute Lymphs (auto) Total Counted PT INR APTT Sodium 135 L Potassium 4.0 Chloride 101 Carbon Dioxide 30.0 Anion Gap 4 L BUN 11 Creatinine 0.87 Estim Creat Clear Calc 46.67 Est GFR (MDRD) Af Amer 80 Est GFR (MDRD) Non-Af 66 BUN/Creatinine Ratio 12.7 Glucose 300 H Calcium 8.5 Troponin I 0.237 H POC Glucose - Medical Decision Making Stroke Team Activated: No - Symptoms have resolved IV TPA Administered: No - symptoms have resolved Paroxysmal H fibrillation, cancer and blood clot on anticoagulant need to evaluate for embolic versus thrombotic event. Specifically concern for embolic involving the optic arterial system. Will initiate stroke order set. Patient was informed she will require admission the hospital for further testing. Blood work is remarkable for troponin of 0.237. CT reveals no intracranial bleed. Hospitalist was contacted for further workup to evaluate for embolic stroke. ED Disposition - Plan for ED Patient: Disposition: Acute Care Hospital [facility] Diagnosis: Transient visual loss of left eye, Elevated troponin I level, continuous churn buttermaker (current) use of anticoagulants, Transient ischemic attack due to embolism, Hypertension, Small cell lung carcinoma Referrals: Gayatri Duque MD [Primary Care Provider] -
--- NOTE | 2018-12-24 16:18 | ED.DCSUM_ITS ---
History of Present Illness Chief Complaint: Eye Problem Informant: Patient, Family Onset: Today Context: Sudden Onset Timing: Intermittent - Duration 15-30 minutes Quality and Location: - - Transient visual disturbance left eye only. Onset: 30 minutes after awakening this morning, 08 Current Severity: Gone - Presently patient has no symptoms Maximum Severity: Moderate Worsened by: Nothing Relieved by: Nothing Associated Symptoms: - - No trouble with ambulation. 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 She was diagnosed with lung cancer 1 year ago. She has a history of atrial Patient denied headache, trouble with speech or swallowing. She denies paresthesia, anesthesia motor weakness. She denied problems with balance or walking. Fibrillation. Her oncologist is Dr. Humberto Rios. Her spreader box operator is Dr. Solomon Fuentes. 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 Rios (8) Transient ischemic attack due to embolism Status: Chronic (9) cataract Status: Resolved Past Medical History - Allergies and Home Meds Allergies/Adverse Reactions: Allergies amoxicillin Allergy (Severe, Verified 12/24/18 15:28) Large hives oxycodone [From OxyIR] Allergy (Verified 12/24/18 15:28) Other passed out, low BP, sylvia Penicillins [PCN] Allergy (Verified 12/24/18 15:28) Rash Sulfa (Sulfonamide Antibiotics) Allergy (Verified 12/24/18 15:28) Rash rosuvastatin [From Crestor] Adverse Reaction (Mild, Verified 12/24/18 15:28) Other codeine Adverse Reaction (Verified 12/24/18 15:28) Other IRREG HEART BEAT hydrocodone Adverse Reaction (Verified 12/24/18 15:28) Other FAST HEART RATE Primary Care Physician: Gayatri Duque MD [Primary Care Provider] - Prior records reviewed: Yes Surgical History: noncontributory Lives: Alone Smoking Status: Never smoker Alcohol: None Drugs: None Review of Systems General: Denies: Chills, Fever, Sweats Eyes: Reports: Visual changes - left. Denies: Blurred vision - left, Diplopia ENT: Denies: Bilateral ear pain, Rhinorrhea, Sore throat Cardiovascular: Denies: Chest pain, Palpitations, Heart racing - . Respiratory: Denies: Dyspnea, Cough, Dyspnea on exertion Gastrointestinal: Denies: Abdominal pain, Nausea, Vomiting, Diarrhea, Melena, Hematochezia Genitourinary: Denies: Dysuria, Hematuria, Frequency Musculoskeletal: Denies: Back pain, Extremity Pain Skin: Denies: Rash, Wounds Neurological: Denies: Headache, Weakness, Numbness Hematologic: Denies: Easy bruising, Easy bleeding Allergy: Denies: Uticaria, Swelling of the mouth Physical Exam Vital Signs/Narrative: Vital Signs Temp Pulse Resp BP Pulse Ox 12/24/18 15:29 98.4 F 80 17 134/75 H 96 Inital Vital Signs reviewed: Yes - NIH Stroke Scale 1a Level of Consciousness: 0 1b LOC Questions (Score 2 if aphasic/stupor): 0 1c LOC Commands (Only score 1st attempt): 0 2 Best Gaze (If aphasic, use reflexive mvmts.): 0 3 Visual: 0 4 Facial Palsy: 0 5 Motor Arm Right (UN = amputation/fusion): 0 5 Motor Arm Left: 0 6 Motor Leg Right: 0 6 Motor Leg Left: 0 7 Limb ataxia (Only + if out of proportion): 0 8 Sensory (Aphasia/stupor=0 or 1, coma=2): 0 9 Best Language: 0 10 Dysarthria (mute, coma=2, intubated=UN): 0 11 Extinction and Inattention (only scored if +): 0 Total Score: 0 General: Well nourished, Well developed Head: Normocephalic, Atraumatic Eyes: Perrl, EOMI, - - Left eye is dilated. She was sent from mgmt analyst office. She had her eyes dilated. He noted no abnormality on funduscopic exam. There was no visual field cuts. ENT: Moist mucous membranes, No rhinorrhea Neck: Supple, Nontender, No lymphadenopathy, No JVD Cardiovascular: Regular rate, Regular rhythm, No murmurs, Normal S1 Respiratory: No distress, CTA bilaterally, Chest nontender Abdomen: Soft, Nontender, Nondistended, Normal bowel sounds Back: Nontender, Normal Inspection Extremities: Nontender, No edema Skin: Normal color, No rash Neurological: Alert, Oriented x3, Cranial nerves II-XII grossly intact, Normal Strength, Normal Sensation, Normal DTR, Normal Gait Psychological: Normal affect Diagnostic/Tx/Re-eval Impressions Brain CT 12/24/18 16:11 IMPRESSION: Chronic involutional changes of the brain. Electronically Signed: Susan Bailey MD at 17:46 EDT Tel , Service support , 12/24/18 16:11 Brain/Head without Contrast [CT] Stat Laboratory Results 12/24/18 12/24/18 12/24/18 16:21 16:23 16:23 WBC 11.2 H RBC 4.17 L Hgb 12.5 Hct 37.9 MCV 90.9 MCH 30.0 MCHC 33.0 RDW 13.2 RDW Differential 43.2 Plt Count 271 MPV 8.9 Immature Gran % (Auto) 0.200 Neut % (Auto) 74.4 H Lymph % (Auto) 13.4 L [place] % (Auto) 9.8 Eos % (Auto) 1.8 Baso % (Auto) 0.4 Absolute Neuts (auto) 8.3 H Absolute Lymphs (auto) 1.49 Total Counted Not Reportable PT 16.8 H INR 1.4 APTT 32.8 Sodium Potassium Chloride Carbon Dioxide Anion Gap BUN Creatinine Estim Creat Clear Calc Est GFR (MDRD) Af Amer Est GFR (MDRD) Non-Af BUN/Creatinine Ratio Glucose Calcium Troponin I POC Glucose 303 H 12/24/18 16:23 WBC RBC Hgb Hct MCV MCH MCHC RDW RDW Differential Plt Count MPV Immature Gran % (Auto) Neut % (Auto) Lymph % (Auto) [place] % (Auto) Eos % (Auto) Baso % (Auto) Absolute Neuts (auto) Absolute Lymphs (auto) Total Counted PT INR APTT Sodium 135 L Potassium 4.0 Chloride 101 Carbon Dioxide 30.0 Anion Gap 4 L BUN 11 Creatinine 0.87 Estim Creat Clear Calc 46.67 Est GFR (MDRD) Af Amer 80 Est GFR (MDRD) Non-Af 66 BUN/Creatinine Ratio 12.7 Glucose 300 H Calcium 8.5 Troponin I 0.237 H POC Glucose - Medical Decision Making Stroke Team Activated: No - Symptoms have resolved IV TPA Administered: No - symptoms have resolved Paroxysmal H fibrillation, cancer and blood clot on anticoagulant need to e valuate for embolic versus thrombotic event. Specifically concern for embolic involving the optic arterial system. Will initiate stroke order set. Patient was informed she will require admission the hospital for further testing. Blood work is remarkable for troponin of 0.237. CT reveals no intracranial bleed. Hospitalist was contacted for further workup to evaluate for embolic stroke. ED Disposition - Plan for ED Patient: Disposition: Acute Care Hospital [facility] Diagnosis: Transient visual loss of left eye, Elevated troponin I level, meterman (current) use of anticoagulants, Transient ischemic attack due to embolism, Hypertension, Small cell lung carcinoma Referrals: Gayatri Duque MD [Primary Care Provider] -
[2018-12-24 16:31] LABS: Bedside Glucose 303 mg/dL (70-110)
[2018-12-24 16:42] LABS: Absolute Lymphocyte Count 1.49 X10^3/ul (0.83-4.51); Absolute Neutrophil Count 8.3 X10^3/uL (2.0-7.7); Basophil# 0.04 X10^3/uL; Basophil% 0.4 % (0-1); Eosinophils% 1.8 % (0-5); Hematocrit 37.9 % (37-47); Hemoglobin 12.5 g/dl (12.0-15.0); Lymphocyte # 1.49 X10^3/ul (4.0); Lymphocyte % 13.4 % (19-41); Mean Corpuscular Volume 90.9 fL (81-99); Mean Platelet Vol. 8.9 fl (6.2-12.0); Monocyte# 1.09 X10^3/uL; Monocyte% 9.8 % (0-10); Neutrophil # 8.32 X10^3/uL (2.7-7.7); Neutrophil % 74.4 % (47-70); Platelet Count 271 K/mm3 (150-450); RBC Distribution Width CV 13.2 % (11.6-14.6); RBC Distribution Width SD 43.2 fl (35.1-43.9); Red Blood Count 4.17 M/mm3 (4.2-5.4); White Blood Count 11.2 K/mm3 (4.4-11.0)
[2018-12-24 16:45] LABS: POSITIVE COUNT NO; POSITIVE DIFFERENTIAL NO; POSITIVE MORPHOLOGY NO
[2018-12-24 16:52] LABS: International Normalized Ratio 1.4; Prothrombin Time (Protime)PT. 16.8 SECONDS (11.7-14.9)
[2018-12-24 16:53] LABS: Anion Gap 4 (5-15); BUN 11 mg/dL (7-18); BUN/Creat Ratio 12.7 RATIO (10-20); Calcium,Total 8.5 mg/dL (8.5-10.1); Chloride 101 mmol/L (98-107); Creatinine, Serum 0.87 mg/dL (0.55-1.02); EST Glomerular Filtration Rate 66 mL/min (>60); Est Glom Filt Rate - Afr Amer 80 mL/min (>60); Estimated Creatinine Clearance 46.67 ml/min; Glucose 300 mg/dL (74-106); Partial Thromboplast Time 32.8 Seconds (24.1-36.2); Sodium Level 135 mmol/L (136-145)
--- NOTE | 2018-12-24 18:14 | PCM.HP.STD ---
Problem List (1) Transient visual loss of left eye Status: Acute (2) Elevated troponin I level Status: Acute (3) Hyperlipidemia Status: Chronic Qualifiers: Hyperlipidemia type: pure hypercholesterolemia Qualified Code(s): E78.00 - Pure hypercholesterolemia, unspecified; E78.0 - Pure hypercholesterolemia (4) Hypertension Status: Chronic Qualifiers: Hypertension type: essential hypertension Qualified Code(s): I10 - Essential (primary) hypertension (5) Paroxysmal atrial fibrillation Status: Chronic (6) CAD (coronary artery disease) Status: Chronic (7) Mitral valve prolapse Status: Chronic History of Present Illness Date of Admission: 12/24/18 Chief Complaint: Vision change The patient is a 83 year old F with a pmhx of stage 4 nonsmall cell lung cancer, pt of Dr. Rios, on Keytruda approximately 1 year, hx of DVTs on eliquis, hx of HTN, nonobstructive CAD, paroxysmal Afib, Mitral valve prolapse, who presents to the ER with c/o change in vision. She states that today she was sitting and listening to tv with her eyes closed (but awake), she opened her eyes and noticed her vision seemed abnormal. She closed her right eye and noticed that her left eye vision had gone silva with no color. She says she could still see but it was ngo. Her right eye vision was normal. She opened and closed her eyes several times, she regained first yellow, them lavender, then full color vision. After about 5 minutes she was back to normal. She did not notice any other symptoms. She denies headache, focal weakness, numbness/tingling, slurred speech. She went to her eye doctor who did not find an issue with the eye itself and sent her to the ER. 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 Rios lung tube (Chronic) stage 4 lung cancer at [facility] Hyperlipidemia (Chronic) Hypertension (Chronic) Paroxysmal atrial tachycardia (Chronic) Carotid bruit (Chronic) Transient ischemic attack due to embolism (Chronic) Paroxysmal atrial fibrillation (Chronic) Medical History: Medical History (Last Reviewed 09/27/18 @ 14:46 by Solomon Fuentes MD) Small cell lung carcinoma (Chronic) C34.90 Stage IV and follows Dr. 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) G45.9, I74.9 Paroxysmal atrial fibrillation (Acute) I48.0 penitentiary (current) use of anticoagulants (Acute) Z79.01 Allergies amoxicillin Allergy (Severe, Verified 12/24/18 15:28) Large hives oxycodone [From OxyIR] Allergy (Verified 12/24/18 15:28) Other passed out, low BP, sylvia Penicillins [PCN] Allergy (Verified 12/24/18 15:28) Rash Sulfa (Sulfonamide Antibiotics) Allergy (Verified 12/24/18 15:28) Rash rosuvastatin [From Crestor] Adverse Reaction (Mild, Verified 12/24/18 15:28) Other codeine Adverse Reaction (Verified 12/24/18 15:28) Other IRREG HEART BEAT hydrocodone Adverse Reaction (Verified 12/24/18 15:28) Other FAST HEART RATE Home Medications: Ambulatory Orders Medication Instructions Recorded Calcium Carbonate [Calcium] 600 mg PO DAILY 11/16/17 Ergocalciferol [Vitamin D] 50,000 unit PO WE 11/16/17 pembrolizumab 25 mg/mL intravenous 1 ml IV UD 01/10/18 solution atenolol 50 mg tablet 50 mg PO DAILY #90 tab 09/27/18 Apixaban [Eliquis] 5 mg PO BID #60 tablet 12/14/18 Benzonatate [Tessalon Perle] 200 mg PO TID PRN PRN #20 capsule 12/14/18 Doxycycline 100 mg PO BID #20 capsule 12/14/18 Insulin Glargine [Lantus SoloStar 10 units SQ QHS 12/14/18 Pen] Levothyroxine [Synthroid] 125 mcg PO DAILY 12/14/18 [place]-3S/Dha/Epa/Fish Oil [[place]-3 1,200 mg PO DAILY 12/14/18 Fish Oil 1,200 mg Sfgl] Warfarin Sodium [Coumadin] 4 mg PO SUMOWETHFRSA 12/14/18 Warfarin [Coumadin] 6 mg PO TU 12/14/18 Surgical History: Surgical History (Last Reviewed 09/27/18 @ 14:46 by Solomon Fuentes MD) lung tube (Chronic) stage 4 lung cancer at [facility] cataract (Resolved) H/O colonoscopy (Resolved) Z98.890 History of dilatation and curettage (Resolved) Z98.890 H/O tubal ligation (Resolved) Z98.51 Surgical History: noncontributory Psychiatric History: No pertinent psych hx BLIND AIDE History: No pertinent BLIND AIDE history Lives: Alone Smoking Status: Never smoker Alcohol: None Drugs: None Review of Systems Constitutional: Denies: Chills, Fever, Weight Change Eyes: Reports: Vision Change. Denies: Blurred vision, Double vision, Drainage HEENT: Denies: Head Aches, Sinus Congestion, Sinus Drainage Cardiovascular: Denies: Chest Pain, Palpitations Respiratory: Denies: Cough, Shortness of breath at rest, Sputum production Gastrointestinal: Denies: Abdominal Pain, Nausea, Vomiting Genitourinary: Denies: Dysuria Musculoskeletal: Denies: Joint Pain, Joint Tenderness Skin: Denies: Rash, Wounds Neurological: Reports: - - loss of color vision. Denies: Blurred vision, Double vision, Focal weakness, Numbness, Tingling Psychiatric: Denies: Anxiety, Depression, Homicidal Ideations, Suicidal Ideations Hematologic/ Lymphatic: Denies: Easy Bruising, Easy Bleeding VTE Information - Inpt Only VTE Present on Admission: No VTE Mechan Device Prophylaxis: None VTE Pharm Prophylaxis ordered?: Yes Patient Problems: Active and Suspected Problems (Last Reviewed 09/27/18 @ 14:46 by Solomon Fuentes MD) Transient visual loss of left eye (Acute) Elevated troponin I level (Acute) terminal computer operator (current) use of anticoagulants (Acute) - Physical Exam General: Alert, Oriented x3, Cooperative HEENT: Atraumatic, PERRLA, EOMI, Normocephalic Neck: Supple, No JVD, Negative Carotid Bruits Lungs: Clear to auscultation, Normal air movement Cardiovascular: Regular rate, No murmurs Abdomen: Bowel Sounds Present, Soft, Non Tender Extremities: No edema, Capillary Refill Less than 3 Seconds Skin: No rashes, No breakdown Musculoskeletal: No Tenderness to Palpation of Joints or Extremities Neurological: Cranial nerves II-XII grossly intact Psych/Mental Status: Normal Affect, Appropriate Vital Signs Temp Pulse Resp BP Pulse Ox 98.4 F 67 18 145/69 H 95 12/24/18 15:29 12/24/18 18:04 12/24/18 18:04 12/24/18 18:04 12/24/18 18:04 Oxygen Delivery Method Room Air Weight: 155 lb Body Mass Index (BMI) 25.0 Finger Stick Blood Glucose 303 Laboratory Tests Past 24 Hrs 12/24/18 12/24/18 12/24/18 16:23 16:23 16:23 WBC 11.2 H RBC 4.17 L Hgb 12.5 Hct 37.9 MCV 90.9 MCH 30.0 MCHC 33.0 RDW 13.2 RDW Differential 43.2 Plt Count 271 MPV 8.9 Immature Gran % (Auto) 0.200 Neut % (Auto) 74.4 H Lymph % (Auto) 13.4 L [place] % (Auto) 9.8 Eos % (Auto) 1.8 Baso % (Auto) 0.4 Absolute Neuts (auto) 8.3 H Absolute Lymphs (auto) 1.49 Total Counted Not Reportable PT 16.8 H INR 1.4 APTT 32.8 Sodium 135 L Potassium 4.0 Chloride 101 Carbon Dioxide 30.0 Anion Gap 4 L BUN 11 Creatinine 0.87 Estim Creat Clear Calc 46.67 Est GFR (MDRD) Af Amer 80 Est GFR (MDRD) Non-Af 66 BUN/Creatinine Ratio 12.7 Glucose 300 H Calcium 8.5 Troponin I 0.237 H POC Glucose 12/24/18 16:21 POC Glucose 303 H Assessment/Plan All Active Problems (Last Reviewed 09/27/18 @ 14:46 by Solomon Fuentes MD) Transient visual loss of left eye (Acute) Elevated troponin I level (Acute) cataract (Resolved) H/O colonoscopy (Resolved) History of dilatation and curettage (Resolved) H/O tubal ligation (Resolved) terminal computer operator (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 Transient loss of color vision left eye - negative eye exam with eye doctor, sent to ER. Negative CT. Episode was 5 mins. Rule out CVA. Obtain MRI. Possible sequelae of immunotherapy or brain mets. Pt already on eliquis for DVTs started a week prior. Consult neurology. 2. Elevated troponin - negative EKG. Trend. C/s Cardiology. Per 09/22 office note she has had a stress test and echo that were negative in [place] recently but dates are unclear and we dont have the reports. 3. Stage IV NSCLC - pt of Dr. Rios, about 1 year into Keytruda therapy. Mildly SOB chronically, not on O2. Never smoked, and denies 2nd hand smoke exposure. Reports intermittent diarrhea with keytruda 4. DMt2 - with hyperglycemia - continue lantus, add SSI. 5. Paroxysmal Afib - in NSR. Rate controlled. Atenolol and eliquis - continue DVT ppx: eliquis This patient was seen by Navin Ortiz PA-C under the supervision of Dr. Wilkins.
--- NOTE | 2018-12-24 18:21 | HP.PCM_ITS ---
Problem List (1) Transient visual loss of left eye Status: Acute (2) Elevated troponin I level Status: Acute (3) Hyperlipidemia Status: Chronic Qualifiers: Hyperlipidemia type: pure hypercholesterolemia Qualified Code(s): E78.00 - Pure hypercholesterolemia, unspecified; E78.0 - Pure hypercholesterolemia (4) Hypertension Status: Chronic Qualifiers: Hypertension type: essential hypertension Qualified Code(s): I10 - Essential (primary) hypertension (5) Paroxysmal atrial fibrillation Status: Chronic (6) CAD (coronary artery disease) Status: Chronic (7) Mitral valve prolapse Status: Chronic History of Present Illness Date of Admission: 12/24/18 Chief Complaint: Vision change The patient is a 83 year old F with a pmhx of stage 4 nonsmall cell lung cancer, pt of Dr. Rios, on Keytruda approximately 1 year, hx of DVTs on eliquis, hx of HTN, nonobstructive CAD, paroxysmal Afib, Mitral valve prolapse, who presents to the ER with c/o change in vision. She states that today she was sitting and listening to tv with her eyes closed (but awake), she opened her eyes and noticed her vision seemed abnormal. She closed her right eye and noticed that her left eye vision had gone silva with no color. She says she could still see but it was ngo. Her right eye vision was normal. She opened and closed her eyes several times, she regained first yellow, them lavender, then full color vision. After about 5 minutes she was back to normal. She did not notice any other symptoms. She denies headache, focal weakness, numbness/tingling, slurred speech. She went to her eye doctor who did not find an issue with the eye itself and sent her to the ER. 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) G45.9, I74.9 Paroxysmal atrial fibrillation (Acute) I48.0 nursing home (current) use of anticoagulants (Acute) Z79.01 Allergies amoxicillin Allergy (Severe, Verified 12/24/18 15:28) Large hives oxycodone [From OxyIR] Allergy (Verified 12/24/18 15:28) Other passed out, low BP, sylvia Penicillins [PCN] Allergy (Verified 12/24/18 15:28) Rash Sulfa (Sulfonamide Antibiotics) Allergy (Verified 12/24/18 15:28) Rash rosuvastatin [From Crestor] Adverse Reaction (Mild, Verified 12/24/18 15:28) Other codeine Adverse Reaction (Verified 12/24/18 15:28) Other [employer] hydrocodone Adverse Reaction (Verified 12/24/18 15:28) Other FAST HEART RATE Home Medications: Ambulatory Orders Medication Instructions Recorded Calcium Carbonate [Calcium] 600 mg PO DAILY 11/16/17 Ergocalciferol [Vitamin D] 50,000 unit PO WE 11/16/17 pembrolizumab 25 mg/mL intravenous 1 ml IV UD 01/10/18 solution atenolol 50 mg tablet 50 mg PO DAILY #90 tab 09/27/18 Apixaban [Eliquis] 5 mg PO BID #60 tablet 12/14/18 Benzonatate [Tessalon Perle] 200 mg PO TID PRN PRN #20 capsule 12/14/18 Doxycycline 100 mg PO BID #20 capsule 12/14/18 Insulin Glargine [Lantus SoloStar 10 units SQ QHS 12/14/18 Pen] Levothyroxine [Synthroid] 125 mcg PO DAILY 12/14/18 Mary Alice-3S/Dha/Epa/Fish Oil [Mary Alice-3 1,200 mg PO DAILY 12/14/18 Fish Oil 1,200 mg Sfgl] Warfarin Sodium [Coumadin] 4 mg PO SUMOWETHFRSA 12/14/18 Warfarin [Coumadin] 6 mg PO TU 12/14/18 Surgical History: Surgical History (Last Reviewed 09/27/18 @ 14:46 by Soloomn Fuentes MD) lung tube (Chronic) stage 4 lung cancer at [facility] cataract (Resolved) H/O colonoscopy (Resolved) Z98.890 History of dilatation and curettage (Resolved) Z98.890 H/O tubal ligation (Resolved) Z98.51 Surgical History: noncontributory Psychiatric History: No pertinent psych hx [employer]LE[employer] COUNSELOR History: No pertinent [employer]LE[employer] COUNSELOR history Lives: Alone Smoking Status: Never smoker Alcohol: None Drugs: None Review of Systems Constitutional: Denies: Chills, Fever, Weight Change Eyes: Reports: Vision Change. Denies: Blurred vision, Double vision, Drainage HEENT: Denies: Head Aches, Sinus Congestion, Sinus Drainage Cardiovascular: Denies: Chest Pain, Palpitations Respiratory: Denies: Cough, Shortness of breath at rest, Sputum production Gastrointestinal: Denies: Abdominal Pain, Nausea, Vomiting Genitourinary: Denies: Dysuria Musculoskeletal: Denies: Joint Pain, Joint Tenderness Skin: Denies: Rash, Wounds Neurological: Reports: - - loss of color vision. Denies: Blurred vision, Double vision, Focal weakness, Numbness, Tingling Psychiatric: Denies: Anxiety, Depression, Homicidal Ideations, Suicidal Ideations Hematologic/ Lymphatic: Denies: Easy Bruising, Easy Bleeding VTE Information - Inpt Only VTE Present on Admission: No VTE Mechan Device Prophylaxis: None VTE Pharm Prophylaxis ordered?: Yes Patient Problems: Active and Suspected Problems (Last Reviewed 09/27/18 @ 14:46 by Solomon Fuentes MD) Transient visual loss of left eye (Acute) Elevated troponin I level (Acute) emt intermediate (current) use of anticoagulants (Acute) - Physical Exam General: Alert, Oriented x3, Cooperative HEENT: Atraumatic, PERRLA, EOMI, Normocephalic Neck: Supple, No JVD, Negative Carotid Bruits Lungs: Clear to auscultation, Normal air movement Cardiovascular: Regular rate, No murmurs Abdomen: Bowel Sounds Present, Soft, Non Tender Extremities: No edema, Capillary Refill Less than 3 Seconds Skin: No rashes, No breakdown Musculoskeletal: No Tenderness to Palpation of Joints or Extremities Neurological: Cranial nerves II-XII grossly intact Psych/Mental Status: Normal Affect, Appropriate Vital Signs Temp Pulse Resp BP Pulse Ox 98.4 F 67 18 145/69 H 95 12/24/18 15:29 12/24/18 18:04 12/24/18 18:04 12/24/18 18:04 12/24/18 18:04 Oxygen Delivery Method Room Air Weight: 155 lb Body Mass Index (BMI) 25.0 Finger Stick Blood Glucose 303 Laboratory Tests Past 24 Hrs 12/24/18 12/24/18 12/24/18 16:23 16:23 16:23 WBC 11.2 H RBC 4.17 L Hgb 12.5 Hct 37.9 MCV 90.9 MCH 30.0 MCHC 33.0 RDW 13.2 RDW Differential 43.2 Plt Count 271 MPV 8.9 Immature Gran % (Auto) 0.200 Neut % (Auto) 74.4 H Lymph % (Auto) 13.4 L [place] % (Auto) 9.8 Eos % (Auto) 1.8 Baso % (Auto) 0.4 Absolute Neuts (auto) 8.3 H Absolute Lymphs (auto) 1.49 Total Counted Not Reportable PT 16.8 H INR 1.4 APTT 32.8 Sodium 135 L Potassium 4.0 Chloride 101 Carbon Dioxide 30.0 Anion Gap 4 L BUN 11 Creatinine 0.87 Estim Creat Clear Calc 46.67 Est GFR (MDRD) Af Amer 80 Est GFR (MDRD) Non-Af 66 BUN/Creatinine Ratio 12.7 Glucose 300 H Calcium 8.5 Troponin I 0.237 H POC Glucose 12/24/18 16:21 POC Glucose 303 H Assessment/Plan All Active Problems (Last Reviewed 09/27/18 @ 14:46 by Solomon Fuentes MD) Transient visual loss of left eye (Acute) Elevated troponin I level (Acute) cataract (Resolved) H/O colonoscopy (Resolved) History of dilatation and curettage (Resolved) H/O tubal ligation (Resolved) emt intermediate (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 Transient loss of color vision left eye - negative eye exam with eye doctor, sent to ER. Negative CT. Episode was 5 mins. Rule out CVA. Obtain MRI. Possible sequelae of immunotherapy or brain mets. Pt already on eliquis for DVTs started a week prior. Consult neurology. 2. Elevated troponin - negative EKG. Trend. C/s Cardiology. Per 09/22 office note she has had a stress test and echo that were negative in [place] recently but dates are unclear and we dont have the reports. 3. Stage IV NSCLC - pt of Dr. Rios, about 1 year into Keytruda therapy. Mildly SOB chronically, not on O2. Never smoked, and denies 2nd hand smoke exposure. Reports intermittent diarrhea with keytruda 4. DMt2 - with hyperglycemia - continue lantus, add SSI. 5. Paroxysmal Afib - in NSR. Rate controlled. Atenolol and eliquis - continue DVT ppx: eliquis This patient was seen by Navin Ortiz PA-C under the supervision of Dr. Wilkins.
--- NOTE | 2018-12-24 18:23 | CASEMGMT ---
RN CM Assessment Introduced role of RN CM to patient and patient daughter at bedside.? Patient is alert, oriented and able?to participate in RN CM Assessment. ?Care providers, pharmacy, and demographics verified. Presentation: Change in Vision Admit Dx: TIA, Indeterm Cardiac Enzymes Re-Admit: No Barriers/Issues: None PCP: Gayatri Duque Specialists: Opth- Dr Duque, Cardio- Dr Fuentes, ONC- Dr Rios Preferred Pharmacy: [facility] Insurance: [employer], [place] Rx Benefit:?Yes LNOK: Ky Zavala LW/HPOA: Yes, HPOA- Ky Zavala Living Arrangements:? Lives with Zak in a 2 story, 2 steps to enter. ADL?s: Independent with ambulation and ADL's Transportation: Patient drives, Children upon DC DME: [employer] HHC: None SNF: None Goal: Home DC PLAN: Home with no anticipated needs. Marcos Mario RNCM
--- NOTE | 2018-12-24 18:50 | RAD_ITS ---
STUDY: X-RAY CHEST REASON FOR EXAM: Female, 83 years old. SOB, cough. TECHNIQUE: PA and lateral COMPARISON: 12/14/2018. FINDINGS: The lungs are clear and expanded. There is no demonstrated pleural abnormality. Normal size heart. Normal mediastinum and alesia. Normal visualized pulmonary arteries. Normal visualized aortic arch and descending thoracic aorta. There are mild degenerative changes of the left shoulder. RAD/Chest PA and Lateral IMPRESSION: No acute findings. Electronically Signed: Susan Bailey MD at 19:07 EDT Tel , Service support ,
--- NOTE | 2018-12-24 19:21 | ECHOD_ITS ---
Reason For Study: TIA/CVA Procedure This was a 2D Doppler, Color Flow transthoracic echocardiogram. The exam was of adequate technical quality. Exam performed portable in patient room. Left Ventricle Normal LV size. Left ventricular systolic function is normal. The estimated ejection fraction is 65 %. No regional wall motion abnormalities noted. Right Ventricle Normal RV size. Normal systolic function. Atria The left atrium is mildly enlarged. The right atrium is mildly enlarged. No doppler evidence for ASD. Bubble contrast study negative for right to left interatrial shunt. Mitral Valve There is no mitral annular calcification. Normal mitral valve. Mild (1+) eccentric mitral valve insufficiency. Tricuspid Valve Normal tricuspid valve. Mild tricuspid valve insufficiency. Right ventricular systolic pressure estimated to be 47 mmHg. Aortic Valve Trisinus/trileaflet aortic valve. Normal aortic valve. Pulmonic Valve The pulmonic valve is not well visualized. Trivial pulmonic valve insufficiency. Great Vessels Normal sized aortic root. Pericardium/Pleural No pericardial effusion. Medication Performed a rapid injection of agitated mix of 9 cc saline and 1cc air to assess for atrial septal defect. MMode/2D Measurements & Calculations LVIDd: 3.8 cm IVSd: 1.1 cm Ao root diam: 3.2 cm LVIDs: 2.6 cm LVPWd: 0.93 cm RVDd: 4.3 cm FS: 31.7 % LAV(MOD-bp): 53.0 ml EDV(MOD-sp4): 83.3 ml EDV(MOD-sp2): 46.0 ml LAV(MOD-bp) Indexed: 29.7 ml/m2 ESV(MOD-sp4): 30.0 ml EF(MOD-sp2): 71.5 % LAV(MOD-sp2): 48.9 ml EF(MOD-sp4): 64.0 % LAV(MOD-sp4): 57.2 ml SV(MOD-sp4): 53.3 ml SV(MOD-sp2): 32.9 ml LA A4 area: 20.1 cm2 LA dimension(2D): 3.4 cm RA A4 area: 19.9 cm2 Time Measurements MV dec time: 0.23 sec Doppler Measurements & Calculations MV E max gregor: 87.2 cm/sec Lat Peak E' Gregor: 8.6 cm/sec Med Peak E' Gregor: 8.9 cm/sec MV A max gregor: 78.3 cm/sec E/E' lat: 10.1 E/E' med: 9.8 MV E/A: 1.1 Ao V2 max: 133.5 cm/sec LV V1 max: 105.6 cm/sec PA V2 max: 94.3 cm/sec Ao max P.1 mmHg LV V1 max P.5 mmHg TR max gregor: 311.7 cm/sec TR max P.1 mmHg Interpretation Summary Left ventricular systolic function is normal. The estimated ejection fraction is 65 %. The left atrium is mildly enlarged. The right atrium is mildly enlarged. Mild (1+) eccentric mitral valve insufficiency. Mild tricuspid valve insufficiency. Trivial pulmonic valve insufficiency. Right ventricular systolic pressure estimated to be 47 mmHg. Transmitral diastolic flow velocities suggest diastolic dysfunction (pseudonormal pattern). Ordering Physician: Milla Wilkins Referring Physician: Gayatri Duque Performed By: Connie Call, FLORENCIA, RVT
--- NOTE | 2018-12-24 19:21 | CT_ITS ---
STUDY: CTA OF THE BRAIN REASON FOR EXAM: Female, 83 years old. Vision changes in the left eye RADIATION DOSAGE (If Supplied By Facility): CTDIvol = ( 13.78 ) mGy, DLP = ( 605.79 ) mGycm TECHNIQUE: CT angiography was performed with a multi-detector CT scanner. Data acquisition was obtained from the skull base through the vertex following intravenous administration of 75ML IV Isovue 370. MIP images were reconstructed from the axial data set. Post-processing of the angiographic images was performed, with multiplanar reformation and 3D reconstruction. Individualized dose optimization techniques were used for this CT. COMPARISON: None. FINDINGS: Normal bilateral petrous carotid arteries. Normal right cavernous carotid artery with a normal supraclinoid bifurcation. Normal left cavernous carotid artery with a normal supraclinoid bifurcation. Normal right A1 segments of the anterior cerebral artery. Normal left A1 segments of the anterior cerebral artery. Normal intact anterior communicating artery (ACOM). Normal bilateral A2 segments of the anterior cerebral arteries. Normal right M1 and M2 segments of the middle cerebral arteries, with a normal M1 bifurcation. Normal left M1 and M2 segments of the middle cerebral arteries, with a normal M1 bifurcation. Normal right posterior communicating artery (PCOM). Normal left posterior communicating artery (PCOM). Normal bilateral vertebral arteries. Normal basilar artery with a normal basilar bifurcation. The visualized bilateral superior cerebellar (SCA) arteries are normal. Normal bilateral P1, P2 and visualized P3 segments of the posterior cerebral arteries. There is no demonstrated aneurysm of the nenana of [place]. There is no demonstrated abnormality of the visualized brain. CT/CTA Head W/WO Contrast IMPRESSION: Normal n[place] of [place] without a demonstrated aneurysm or hemodynamically significant stenosis. Electronically Signed: Russell Frazier MD at 1:27 EDT Tel , Service support ,
--- NOTE | 2018-12-24 19:21 | CT_ITS ---
STUDY: CTA NECK WITH CONTRAST REASON FOR EXAM: Female, 83 years old. Vision changes in the left eye RADIATION DOSAGE (If Supplied By Facility): CTDIvol = ( 13.78 ) mGy, DLP = ( 605.79 ) mGycm TECHNIQUE: CT angiography with multi-detector data acquisition was performed from the aortic arch to the skull base following intravenous administration of 75ML IV Isovue 370. MIP images were reconstructed from the axial data set. Post-processing of the angiographic images was performed, with multiplanar reformation and 3D reconstruction. Individualized dose optimization techniques were used for this CT. COMPARISON: None. FINDINGS: AORTIC ARCH: Normal visualized aortic arch. Normal origins of the brachiocephalic, left common carotid, and left subclavian arteries. RIGHT CAROTID ARTERIES: Normal right common carotid artery (CCA). Normal right common carotid bulb. Normal origin of the right internal carotid (ICA) artery without a hemodynamically significant stenosis. Normal visualized cervical portion of the right internal carotid artery. Normal origin of the right external carotid artery (ECA). LEFT CAROTID ARTERIES: Normal left common carotid artery (CCA). Normal left common carotid bulb. Normal origin of the left internal carotid (ICA) artery without a hemodynamically significant stenosis. Normal visualized cervical portion of the left internal carotid artery. Normal origin of the left external carotid artery (ECA). VERTEBRAL ARTERIES: Atretic right vertebral artery CT/CTA Neck W/WO Contrast IMPRESSION: Atretic right vertebral artery. The study is otherwise normal Electronically Signed: Russlel Frazier MD at 1:24 EDT Tel , Service support ,
[2018-12-24] MEDS: 0.9% Normal Saline 1,000 ML 100 ML IV (20:48)
[2018-12-24 20:52] LABS: Hemoglobin A1c 8.4 % (4.2-6.3)
[2018-12-24 20:54] LABS: Magnesium 1.8 mg/dL (1.6-2.6); Phosphorus 2.5 mg/dL (2.5-4.9); Thyroid Stim Hormone (TSH) 2.17 uIU/mL (0.358-3.74)
[2018-12-24] MEDS: APIXABAN 5 MG TABLET PO (22:46)
[2018-12-24] MEDS: Doxycycline 100 MG CAPSULE PO (22:46)
[2018-12-24] MEDS: Insulin Lispro 100 UNIT/ML INSULN.PEN SC (22:47)
[2018-12-24 22:56] LABS: Bedside Glucose 193 mg/dL (70-110)
[2018-12-25] VITALS (10 sets, daily range): BP systolic 124–141; BP diastolic 53–69; PULSE 64–81; RESP 16–18; TEMP 36.6–37.2; O2SAT 93–97; BMI 24.7
[2018-12-25] MEDS: Levothyroxine 125 MCG Tablet PO (05:25)
[2018-12-25] MEDS: Acetaminophen 325 MG Tablet 650 MG PO (05:27)
--- NOTE | 2018-12-25 05:55 | EKG12_ITS ---
Test Reason : AM EKG Blood Pressure : / mmHG Vent. Rate : 074 BPM Atrial Rate : 074 BPM P-R Int : 196 ms QRS Dur : 076 ms QT Int : 400 ms P-R-T Axes : 051 037 038 degrees QTc Int : 444 ms Normal sinus rhythm Normal ECG When compared with ECG of 24-DEC-2018 16:19, MANUAL COMPARISON REQUIRED, DATA IS UNCONFIRMED Confirmed by JOHNNY BERG ([id number]), art editor TAYLOR SILVERMAN ([id number]) on 12/27/2018 11:19:13 AM Referred By: DR LOPEZ Confirmed By:JOHNNY BERG
[2018-12-25 06:08] LABS: Cholesterol 161 mg/dL (200); High Density Lipoprotein 48 mg/dL; Triglycerides 101 mg/dL; Very Low Density Lipoprotein 20 mg/dL (5-40)
[2018-12-25 06:50] LABS: Bedside Glucose 161 mg/dL (70-110)
--- NOTE | 2018-12-25 07:00 | MRI_ITS ---
STUDY: MRI BRAIN WITHOUT CONTRAST REASON FOR EXAM: Female, 83 years old. Transient vision loss left eye. TECHNIQUE: Standardized multiplanar fat and water weighted pulse sequences were obtained. COMPARISON: CT of the head dated December 24, 2018. FINDINGS: There is mild cerebral atrophy with widening of the extra-axial spaces and ventricular dilatation. There are multiple white matter hyperintensities, distributed throughout the deep white matter tracts of the cerebral hemispheres, consistent with moderate chronic white matter ischemic changes. There is confluent periventricular hyperintensity cloaking the lateral ventricles, consistent with periventricular leukoaraiosis. There are multiple tiny scattered foci of restricted diffusion in the left frontal lobe, left parietal lobe and at the junction between the left parietal and occipital lobes consistent with acute infarct. There are also foci of restricted diffusion in the right frontal lobe and right sided parietal lobe at the watershed area. There is questionable focus of restricted diffusion in the posterior central medulla. Normal T2* images of the brain without demonstrated susceptibility artifact. There is no demonstrated hemosiderin stain. Normal bilateral basal ganglia. Normal thalami. There is no extra-axial fluid accumulation. Normal flow voids within the major intracranial circulation suggesting patency by spin echo criteria. Normal sella turcica, pituitary gland, infundibular stalk, optic chiasm and hypothalamus. Normal tectal plate and pineal gland. Normal midbrain, lilian and medulla. Normal cerebellum. Normal basal cisterns. Normal bilateral temporal bones. Normal bilateral internal auditory canals. There are bilateral ocular lens implants with otherwise normal intraorbital contents. There is mucoperiosteal inflammatory disease of the paranasal sinuses consistent with mild chronic sinusitis. Normal calvarium and skull base. Normal visualized soft tissue structures. Normal visualized upper cervical spine. MRI/Brain without Contrast IMPRESSION: 1. Involutional changes of the brain, as described above. 2. Multiple bilateral acute infarcts, left greater than right, possibly related to watershed etiology. N.B. : The above information has been verbally conveyed by Nneka Ambriz MD to Charge Nurse Geremias Owusu RN, on 12/25/2018 08:14:20 (ET). Electronically Signed: Nneka Ambriz MD at 8:02 EDT , Service support ,
[2018-12-25] MEDS: Insulin Lispro 100 UNIT/ML INSULN.PEN SC ×4 (08:08→22:48)
[2018-12-25] MEDS: Aspirin 81 MG TAB.CHEW PO (08:10)
[2018-12-25] MEDS: APIXABAN 5 MG TABLET PO ×2 (09:23→22:42)
[2018-12-25] MEDS: Atenolol 50 MG Tablet PO (09:23)
[2018-12-25] MEDS: Doxycycline 100 MG CAPSULE PO ×2 (09:23→22:42)
[2018-12-25 12:15] LABS: Bedside Glucose 154 mg/dL (70-110)
--- NOTE | 2018-12-25 13:12 | PCM.CONS.C ---
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 Rios (7) nursing home (current) use of anticoagulants Status: Chronic (8) Transient visual loss of left eye Status: Acute Reason for Consult Date of Consultation: 12/25/18 History of Present Illness: The patient is a 83 year old white female with a past medical history which is included paroxysmal atrial fibrillation, CAD (reported as nonobstructive), hyperlipidemia, hypertension, small cell lung carcinoma, now presents for concerns of transient left eye vision, and indeterminate troponin I levels. She denies any ongoing episodes of chest discomfort or difficulty breathing. She does not recall any palpitations or rapid rates. There is been no report of near syncope or syncope. She states she was in her usual state of health, continuing her evaluation and care for her small cell lung carcinoma with immunologic therapy, until yesterday when she noted transient visual disturbances/loss regarding her left eye. She states her vision became ngo and then ngo-yellow and then ngo lavender and then eventually returned to normal. Based upon this she presented to the emergency department for further evaluation. During her emergency department evaluation a troponin I level was obtained which was reported as indeterminate. An ECG demonstrated sinus rhythm with no acute ECG changes. She was subsequently placed in the PCU for further evaluation and care from a cardiac standpoint as well as a neurologic standpoint. She denies any ongoing concerns at this time of chest discomfort or difficulty breathing. She still denies any palpitations or rapid rates. There was no loss of consciousness. A follow-up troponin I level was indeterminate. Her cardiac rhythm has remained sinus rhythm. Brain MRI was obtained. She had bilateral acute infarcts with the left being greater than the right per the radiology report. According to the [facility] staff a neurology interpretation as to whether this truly represents bilateral infarcts versus metastatic disease related to her underlying lung carcinoma is pending. [] Of note, the patient says she has undergone evaluation in the remote past with diagnostic cardiac catheterization at either [facility] or [facility]. Those reports are unavailable for review. However she states she was not diagnosed with any significant CAD requiring further evaluation or care. Past Medical History Allergies/Adverse Reactions: Allergies amoxicillin Allergy (Severe, Verified 12/24/18 19:37) Large hives oxycodone [From OxyIR] Allergy (Verified 12/24/18 19:37) Other passed out, low BP, sylvia Penicillins [PCN] Allergy (Verified 12/24/18 19:37) Rash Sulfa (Sulfonamide Antibiotics) Allergy (Verified 12/24/18 19:37) Rash rosuvastatin [From Crestor] Adverse Reaction (Mild, Verified 12/24/18 19:37) Other bones aching codeine Adverse Reaction (Verified 12/24/18 19:37) Other IRREG HEART BEAT hydrocodone Adverse Reaction (Verified 12/24/18 19:37) Other FAST HEART RATE Home Medications: Ambulatory Orders Medication Instructions Recorded Calcium Carbonate [Calcium] 600 mg PO DAILY 11/16/17 Ergocalciferol [Vitamin D] 50,000 unit PO WE 11/16/17 pembrolizumab 25 mg/mL intravenous 1 ml IV UD 01/10/18 solution atenolol 50 mg tablet 50 mg PO DAILY #90 tab 09/27/18 Insulin Glargine [Lantus SoloStar 10 units SQ QHS 12/14/18 Pen] Levothyroxine [Synthroid] 125 mcg PO DAILY 12/14/18 Marina-3S/Dha/Epa/Fish Oil [Marina-3 1,200 mg PO DAILY 12/14/18 Fish Oil 1,200 mg Sfgl] Apixaban [Eliquis] 5 mg PO BID 12/24/18 Doxycycline 100 mg PO BID 12/24/18 Metformin HCl mg PO DAILY 12/24/18 Past Medical History (Chronic Problems): Chronic Problems (Last Reviewed 09/27/18 @ 14:46 by Solomon Fuentes MD) CAD (coronary artery disease) (Chronic) Mitral valve prolapse (Chronic) Small cell lung carcinoma (Chronic) Stage IV and follows Dr. 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 Lives: Alone Smoking Status: Never smoker Alcohol: None Drugs: None Review of Systems - Review of Systems General: Denies: Fever, Night Sweats, Fatigue HEENT: Reports: Vision Change Cardiovascular: Denies: Chest Discomfort, Shortness of Breath, Orthopnea, PND, Peripheral Edema, Palpitations, Lightheadedness, Dizziness, Near Syncope, Syncope Respiratory: Denies: Cough, Sputum Production, Hemoptysis Gastrointestinal: Denies: Hematemesis, Hematochezia, Melena Genitourinary: Denies: Dysuria, Hematuria Skin: Denies: Rash Subjectve: This is a pleasant 83-year-old white female who appears to be resting comfortably at the moment in no acute distress. Objective: Vital Signs Temp Pulse Resp BP Pulse Ox 98.4 F 64 16 139/66 H 97 12/25/18 12:00 12/25/18 12:00 12/25/18 12:00 12/25/18 12:00 12/25/18 12:00 Oxygen Delivery Method Room Air Weight: 153 lb 0.013 oz Body Mass Index (BMI) 24.7 Finger Stick Blood Glucose 303 Intake and Output for Last 24 Hours 12/23/18 12/24/18 12/25/18 23:59 23:59 23:59 Intake Total 710 / 710 788 / 788 Balance 710 / 710 788 / 788 General: Awake, Alert, Oriented x 3, Cooperative, No Acute Distress HEENT: Atraumatic, Normocephalic, PERRL, EOMI, Sclera Non Icteric Oral: Moist Mucosa Neck: Supple, Good ROM, No JVD Lungs: Clear to auscultation Cardiovascular: Regular Rhythm, Normal S1, Normal S2 Vascular: No Carotid Bruits Abdomen: Bowel Sounds Present, Soft, Non Tender Extremities: No edema Psych/Mental Status: Appropriate 12/24/18 16:23: WBC 11.2 H, RBC 4.17 L, Hgb 12.5, Hct 37.9, MCV 90.9, MCH 30.0, MCHC 33.0, RDW 13.2, RDW Differential 43.2, Plt Count 271, MPV 8.9, Immature Gran % (Auto) 0.200, Neut % (Auto) 74.4 H, Lymph % (Auto) 13.4 L, Granite % (Auto) 9.8, Eos % (Auto) 1.8, Baso % (Auto) 0.4, Absolute Neuts (auto) 8.3 H, Total Counted Not Reportable 12/24/18 16:23: PT 16.8 H, INR 1.4, APTT 32.8 12/24/18 16:23: Sodium 135 L, Potassium 4.0, Chloride 101, Carbon Dioxide 30.0, Anion Gap 4 L, BUN 11, Creatinine 0.87, Est GFR (MDRD) Af Amer 80, Est GFR (MDRD) Non-Af 66, BUN/Creatinine Ratio 12.7, Glucose 300 H, Calcium 8.5, Troponin I 0.237 H 12/24/18 19:58: Phosphorus 2.5, Magnesium 1.8, Troponin I 0.288 H 12/24/18 19:58: Hemoglobin A1c 8.4 H 12/24/18 22:08: Troponin I 0.285 H 12/25/18 05:40: Triglycerides 101, Cholesterol 161, LDL Cholesterol 93, VLDL Cholesterol 20, HDL Cholesterol 48 Rhythm: Sinus rhythm EKG: As noted above ECHO: 10-27-17: [facility]; [place], [place] Impression: Left ventricular ejection fraction by visual estimate Levarian is 60-65% Global left ventricular systolic function is normal Impaired relaxation compatible with grade 1 out of 4 LV diastolic dysfunction No evidence of pericardial effusion Degenerative tricuspid valve Mild TR Intact interatrial septum and interventricular septum appear intact with no echocardiographic evidence of intracardiac shunting Mildly elevated pulmonary artery systolic pressure Stress Test: None available for review Cardiac Cath: Unavailable for review CXR: Reported per radiology as no acute findings Assessment/Plan 1. Elevated troponin I level The patient does have indeterminate troponin I levels. The etiology is unclear at the time as to whether this represents a type I event versus a type II event which may be secondary to noncardiovascular issues such as potentially an acute WOOL PULLER event. At the present time the patient is being monitored. Her enzymes are being followed. Her ECG is being followed. An echocardiogram is pending. She is also continuing neurology evaluation with neurology consultation for further evaluation and care including additional evaluation/recommendations based upon her MRI scan findings. In the meantime the patient will continue medical management for her underlying cardiovascular diagnosis as deemed appropriate. 2. Paroxysmal atrial fibrillation the patient has had a history of paroxysmal atrial ablation. She has been on anticoagulant therapy. She notes while on warfarin/Coumadin therapy, which was much more financially affordable for her, she had issues with DVT. Thus her medications have been altered to apixaban/Eliquis. She states she has been on that medication for at least a week. It is unclear at this time whether the patient has had any recurrence of her atrial dysrhythmia on anticoagulant therapy which, if well on warfarin/Coumadin therapy with subtherapeutic levels, could lead to potential left atrial appendage thrombus and subsequent thromboembolic events leading to WOOL PULLER events. At the moment it appears the patient will need to continue medical management including anticoagulant therapy hopefully without interruption unless otherwise indicated. 3. CAD The patient has a history of CAD. Apparently is been reported as nonobstructive. The patient should continue risk factor evaluation care and medical management as deemed appropriate. Again it is unclear as to whether this is an etiology for her indeterminate troponin I levels. She will need to continue cardiac and noncardiac evaluation care as deemed appropriate. 4. Hyperlipidemia The patient should continue risk factor evaluation and care and medical management. 5. Hypertension The blood pressure is will be followed. Her medications can be adjusted as needed. 6. Small cell lung carcinoma The patient does have small cell lung carcinoma. She has reported it at stage IV. The patient follows with hematology/oncology. The patient will continue to be followed. She is being evaluated for any obvious evidence that her MRI findings are related to metastatic disease versus thromboembolic disease. 7. Anticoagulant therapy The patient has a history of thromboembolic disease. She has been on anticoagulant therapy. She states she has been altered from warfarin/Coumadin to apixaban/Eliquis based upon concerns of failure of warfarin/Coumadin possibly because of a DVT while on such therapy. She will need to continue medical management as deemed appropriate. Hopefully her medications will not have to be interrupted. 8. Vision disturbance The patient will continue neurologic evaluation. It is unclear whether this is related to a thromboembolic event versus her carcinoma with metastatic disease and WOOL PULLER involvement. Again if this is a WOOL PULLER event this can be contributing to her indeterminate troponin I levels. Comment: The above was discussed with the patient and the [facility] hospitalist team. This note was generated using a voice recognition system and there may be incorrect words, spelling or punctuation that were not noted when reviewing the office note prior to saving.
--- NOTE | 2018-12-25 13:17 | CON.PCM_ITS ---
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 Rios (7) senior care (current) use of anticoagulants Status: Chronic (8) Transient visual loss of left eye Status: Acute Reason for Consult Date of Consultation: 12/25/18 History of Present Illness: The patient is a 83 year old white female with a past medical history which is included paroxysmal atrial fibrillation, CAD (reported as nonobstructive), hyperlipidemia, hypertension, small cell lung carcinoma, now presents for concerns of transient left eye vision, and indeterminate troponin I levels. She denies any ongoing episodes of chest discomfort or difficulty breathing. She does not recall any palpitations or rapid rates. There is been no report of near syncope or syncope. She states she was in her usual state of health, continuing her evaluation and care for her small cell lung carcinoma with immunologic therapy, until yesterday when she noted transient visual disturbances/loss regarding her left eye. She states her vision became ngo and then ngo-yellow and then ngo lavender and then eventually returned to normal. Based upon this she presented to the emergency department for further evaluation. During her emergency department evaluation a troponin I level was obtained which was reported as indeterminate. An ECG demonstrated sinus rhythm with no acute ECG changes. She was subsequently placed in the PCU for further evaluation and care from a cardiac standpoint as well as a neurologic standpoint. She denies any ongoing concerns at this time of chest discomfort or difficulty breathing. She still denies any palpitations or rapid rates. There was no loss of consciousness. A follow-up troponin I level was indeterminate. Her cardiac rhythm has remained sinus rhythm. Brain MRI was obtained. She had bilateral acute infarcts with the left being greater than the right per the radiology report. According to the [facility] staff a neurology interpretation as to whether this truly represents bilateral infarcts versus metastatic disease related to her underlying lung carcinoma is pending. [] Of note, the patient says she has undergone evaluation in the remote past with diagnostic cardiac catheterization at either [facility] or [facility]. Those reports are unavailable for review. However she states she was not diagnosed with any significant CAD requiring further evaluation or care. Past Medical History Allergies/Adverse Reactions: Allergies amoxicillin Allergy (Severe, Verified 12/24/18 19:37) Large hives oxycodone [From OxyIR] Allergy (Verified 12/24/18 19:37) Other passed out, low BP, sylvia Penicillins [PCN] Allergy (Verified 12/24/18 19:37) Rash Sulfa (Sulfonamide Antibiotics) Allergy (Verified 12/24/18 19:37) Rash rosuvastatin [From Crestor] Adverse Reaction (Mild, Verified 12/24/18 19:37) Other bones aching codeine Adverse Reaction (Verified 12/24/18 19:37) Other IRREG HEART BEAT hydrocodone Adverse Reaction (Verified 12/24/18 19:37) Other FAST HEART RATE Home Medications: Ambulatory Orders Medication Instructions Recorded Calcium Carbonate [Calcium] 600 mg PO DAILY 11/16/17 Ergocalciferol [Vitamin D] 50,000 unit PO WE 11/16/17 pembrolizumab 25 mg/mL intravenous 1 ml IV UD 01/10/18 solution atenolol 50 mg tablet 50 mg PO DAILY #90 tab 09/27/18 Insulin Glargine [Lantus SoloStar 10 units SQ QHS 12/14/18 Pen] Levothyroxine [Synthroid] 125 mcg PO DAILY 12/14/18 Almond-3S/Dha/Epa/Fish Oil [Almond-3 1,200 mg PO DAILY 12/14/18 Fish Oil 1,200 mg Sfgl] Apixaban [Eliquis] 5 mg PO BID 12/24/18 Doxycycline 100 mg PO BID 12/24/18 Metformin HCl mg PO DAILY 12/24/18 Past Medical History (Chronic Problems): Chronic Problems (Last Reviewed 09/27/18 @ 14:46 by Solomon Fuentes MD) CAD (coronary artery disease) (Chronic) Mitral valve prolapse (Chronic) Small cell lung carcinoma (Chronic) Stage IV and follows Dr. Rios lung tube (Chronic) stage [address] 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 Lives: Alone Smoking Status: Never smoker Alcohol: None Drugs: None Review of Systems - Review of Systems General: Denies: Fever, Night Sweats, Fatigue HEENT: Reports: Vision Change Cardiovascular: Denies: Chest Discomfort, Shortness of Breath, Orthopnea, PND, Peripheral Edema, Palpitations, Lightheadedness, Dizziness, Near Syncope, Syncope Respiratory: Denies: Cough, Sputum Production, Hemoptysis Gastrointestinal: Denies: Hematemesis, Hematochezia, Melena Genitourinary: Denies: Dysuria, Hematuria Skin: Denies: Rash Subjectve: This is a pleasant 83-year-old white female who appears to be resting comfortably at the moment in no acute distress. Objective: Vital Signs Temp Pulse Resp BP Pulse Ox 98.4 F 64 16 139/66 H 97 12/25/18 12:00 12/25/18 12:00 12/25/18 12:00 12/25/18 12:00 12/25/18 12:00 Oxygen Delivery Method Room Air Weight: 153 lb 0.013 oz Body Mass Index (BMI) 24.7 Finger Stick Blood Glucose 303 Intake and Output for Last 24 Hours 12/23/18 12/24/18 12/25/18 23:59 23:59 23:59 Intake Total 710 / 710 788 / 788 Balance 710 / 710 788 / 788 General: Awake, Alert, Oriented x 3, Cooperative, No Acute Distress HEENT: Atraumatic, Normocephalic, PERRL, EOMI, Sclera Non Icteric Oral: Moist Mucosa Neck: Supple, Good ROM, No JVD Lungs: Clear to auscultation Cardiovascular: Regular Rhythm, Normal S1, Normal S2 Vascular: No Carotid Bruits Abdomen: Bowel Sounds Present, Soft, Non Tender Extremities: No edema Psych/Mental Status: Appropriate 12/24/18 16:23: WBC 11.2 H, RBC 4.17 L, Hgb 12.5, Hct 37.9, MCV 90.9, MCH 30.0, MCHC 33.0, RDW 13.2, RDW Differential 43.2, Plt Count 271, MPV 8.9, Immature Gran % (Auto) 0.200, Neut % (Auto) 74.4 H, Lymph % (Auto) 13.4 L, Gordon % (Auto) 9.8, Eos % (Auto) 1.8, Baso % (Auto) 0.4, Absolute Neuts (auto) 8.3 H, Total Counted Not Reportable 12/24/18 16:23: PT 16.8 H, INR 1.4, APTT 32.8 12/24/18 16:23: Sodium 135 L, Potassium 4.0, Chloride 101, Carbon Dioxide 30.0, Anion Gap 4 L, BUN 11, Creatinine 0.87, Est GFR (MDRD) Af Amer 80, Est GFR (MDRD) Non-Af 66, BUN/Creatinine Ratio 12.7, Glucose 300 H, Calcium 8.5, Troponin I 0.237 H 12/24/18 19:58: Phosphorus 2.5, Magnesium 1.8, Troponin I 0.288 H 12/24/18 19:58: Hemoglobin A1c 8.4 H 12/24/18 22:08: Troponin I 0.285 H 12/25/18 05:40: Triglycerides 101, Cholesterol 161, LDL Cholesterol 93, VLDL Cholesterol 20, HDL Cholesterol 48 Rhythm: Sinus rhythm EKG: As noted above ECHO: 10-27-17: [facility]; [place], [place] Impression: Left ventricular ejection fraction by visual estimate Levarian is 60-65% Global left ventricular systolic function is normal Impaired relaxation compatible with grade 1 out of 4 LV diastolic dysfunction No evidence of pericardial effusion Degenerative tricuspid valve Mild TR Intact interatrial septum and interventricular septum appear intact with no echocardiographic evidence of intracardiac shunting Mildly elevated pulmonary artery systolic pressure Stress Test: None available for review Cardiac Cath: Unavailable for review CXR: Reported per radiology as no acute findings Assessment/Plan 1. Elevated troponin I level The patient does have indeterminate troponin I levels. The etiology is unclear at the time as to whether this represents a type I event versus a type II event which may be secondary to noncardiovascular issues such as potentially an acute BUSINESS REPORTING DEVELOPER event. At the present time the patient is being monitored. Her enzymes are being followed. Her ECG is being followed. An echocardiogram is pending. She is also continuing neurology evaluation with neurology consultation for further evaluation and care including additional evaluation/recommendations based upon her MRI scan findings. In the meantime the patient will continue medical management for her underlying cardiovascular diagnosis as deemed appropriate. 2. Paroxysmal atrial fibrillation the patient has had a history of paroxysmal atrial ablation. She has been on anticoagulant therapy. She notes while on warfarin/Coumadin therapy, which was much more financially affordable for her, she had issues with DVT. Thus her medications have been altered to apixaban/Eliquis. She states she has been on that medication for at least a week. It is unclear at this time whether the patient has had any recurrence of her atrial dysrhythmia on anticoagulant therapy which, if well on warfarin/Coumadin therapy with subtherapeutic levels, could lead to potential left atrial appendage thrombus and subsequent thromboembolic events leading to BUSINESS REPORTING DEVELOPER events. At the moment it appears the patient will need to continue medical management including anticoagulant therapy hopefully without interruption unless otherwise indicated. 3. CAD The patient has a history of CAD. Apparently is been reported as nonobstructive. The patient should continue risk factor evaluation care and medical management as deemed appropriate. Again it is unclear as to whether this is an etiology for her indeterminate troponin I levels. She will need to continue cardiac and noncardiac evaluation care as deemed appropriate. 4. Hyperlipidemia The patient should continue risk factor evaluation and care and medical management. 5. Hypertension The blood pressure is will be followed. Her medications can be adjusted as needed. 6. Small cell lung carcinoma The patient does have small cell lung carcinoma. She has reported it at stage IV. The patient follows with hematology/oncology. The patient will continue to be followed. She is being evaluated for any obvious evidence that her MRI findings are related to metastatic disease versus thromboembolic disease. 7. Anticoagulant therapy The patient has a history of thromboembolic disease. She has been on anticoagulant therapy. She states she has been altered from warfarin/Coumadin to apixaban/Eliquis based upon concerns of failure of warfarin/Coumadin possibly because of a DVT while on such therapy. She will need to continue medical management as deemed appropriate. Hopefully her medications will not have to be interrupted. 8. Vision disturbance The patient will continue neurologic evaluation. It is unclear whether this is related to a thromboembolic event versus her carcinoma with metastatic disease and BUSINESS REPORTING DEVELOPER involvement. Again if this is a BUSINESS REPORTING DEVELOPER event this can be contributing to her indeterminate troponin I levels. Comment: The above was discussed with the patient and the [facility] hospitalist team. This note was generated using a voice recognition system and there may be incorrect words, spelling or punctuation that were not noted when reviewing the office note prior to saving.
--- NOTE | 2018-12-25 14:21 | PCM.CONS.GEN ---
Problem List (1) Stroke Status: Acute Qualifiers: CVA mechanism: embolism Laterality of affected vessel: bilateral Reason for Consult Date of Consultation: 12/25/18 Reason for Consultation: Stroke History of Present Illness: The patient is a 83 year old F with PMH HTN, HLD, DM, CAD, history of TIA, stage IV lung cancer followed by Dr. Rios, on Keytruda, paroxysmal atrial fibrillation on Eliquis, recently diagnosed DVT, hypothyroidism admitted with left eye visual disturbances. Per patient yesterday 12/24/2018 after having breakfast she felt that she was unable to see any colors over the left eye her left visual field was greenish in color, she closed her eyes and open her eyes and later in about 5 minutes her vision normalized, she denies any headache along with the visual disturbances, denies any focal motor weakness, sensory loss, weakness seizures, dizziness or speech disturbances. At present per patient her vision is at baseline. Patient's son Dr. Zavala is also at bedside. Per patient she was on Coumadin in the past for atrial fibrillation and then later was found to have DVTs about a week ago and has been transitioned to Eliquis for about a week. Per patient she did not miss any dose of Eliquis. She lives with her , does drive denies any falls does, does not do any assistance for her ADLs. Per patient since being on Keytruda for chemotherapy for lung cancer she has been having episodes of pneumonitis for which she has been treated with steroids, she also complains of having some difficulty in getting up from the bathtub since last week but denies any muscle pain or difficulty getting up from the chair or in and out of the car. CTA head/neck done on admission did not show any hemodynamically significant stenosis or occlusion. MRI brain without contrast done on admission reported to show multiple small bilateral acute infarcts in the left frontal, left parietal lobe and at the junction between the left parietal and occipital lobes, possibly also related to watershed etiology. 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 Rios lung tube (Chronic) stage 4 lung cancer at [facility] Hyperlipidemia (Chronic) Hypertension (Chronic) Paroxysmal atrial tachycardia (Chronic) Carotid bruit (Chronic) Transient ischemic attack due to embolism (Chronic) Paroxysmal atrial fibrillation (Chronic) [facility] (current) use of anticoagulants (Chronic) Medical History: Medical History (Last Reviewed 09/27/18 @ 14:46 by Solomon Fuentes MD) Small cell lung carcinoma (Chronic) C34.90 Stage IV and follows Dr. 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) Z79.01 Allergies amoxicillin Allergy (Severe, Verified 12/24/18 19:37) Large hives oxycodone [From OxyIR] Allergy (Verified 12/24/18 19:37) Other passed out, low BP, sylvia Penicillins [PCN] Allergy (Verified 12/24/18 19:37) Rash Sulfa (Sulfonamide Antibiotics) Allergy (Verified 12/24/18 19:37) Rash rosuvastatin [From Crestor] Adverse Reaction (Mild, Verified 12/24/18 19:37) Other bones aching codeine Adverse Reaction (Verified 12/24/18 19:37) Other IRREG HEART BEAT hydrocodone Adverse Reaction (Verified 12/24/18 19:37) Other FAST HEART RATE Home Medications: Ambulatory Orders Medication Instructions Recorded Calcium Carbonate [Calcium] 600 mg PO DAILY 11/16/17 Ergocalciferol [Vitamin D] 50,000 unit PO WE 11/16/17 pembrolizumab 25 mg/mL intravenous 1 ml IV UD 01/10/18 solution atenolol 50 mg tablet 50 mg PO DAILY #90 tab 09/27/18 Insulin Glargine [Lantus SoloStar 10 units SQ QHS 12/14/18 Pen] Levothyroxine [Synthroid] 125 mcg PO DAILY 12/14/18 [place]-3S/Dha/Epa/Fish Oil [[place]-3 1,200 mg PO DAILY 12/14/18 Fish Oil 1,200 mg Sfgl] Apixaban [Eliquis] 5 mg PO BID 12/24/18 Doxycycline 100 mg PO BID 12/24/18 Metformin HCl mg PO DAILY 12/24/18 Surgical History: Surgical History (Last Reviewed 09/27/18 @ 14:46 by Solomon Fuentes MD) lung tube (Chronic) stage 4 lung cancer at [facility] cataract (Resolved) H/O colonoscopy (Resolved) Z98.890 History of dilatation and curettage (Resolved) Z98.890 H/O tubal ligation (Resolved) Z98.51 Surgical History: noncontributory Psychiatric History: No 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 psych hx 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 Lives: Alone Smoking Status: Never smoker Alcohol: None Drugs: None Review of Systems Constitutional: Reports: - - Complete ROS negative except as documented in HPI Patient Problems: Active and Suspected Problems (Last Reviewed 09/27/18 @ 14:46 by Solomon Fuentes MD) Transient visual loss of left eye (Acute) Elevated troponin I level (Acute) Stroke (Acute) - Physical Exam General: Alert HEENT: Normocephalic Neck: Supple Lungs: Normal air movement Cardiovascular: Normal S1, Normal S2 Abdomen: Bowel Sounds Present Extremities: No cyanosis Neurological: - - consious, alert, AoAx3, CN 2-12 grossly intact, power 5/5 all 4 extremities, no sensory loss, no cerebellar signs, Reflexes + B/L B/S/T/K/A, no sensory loss, gait deferred, NIHSS 0, mRS 1 at baseline Psych/Mental Status: Normal Affect Vital Signs Temp Pulse Resp BP Pulse Ox 98.4 F 64 16 139/66 H 97 12/25/18 12:00 12/25/18 12:00 12/25/18 12:00 12/25/18 12:00 12/25/18 12:00 Oxygen Delivery Method Room Air Weight: 69.4 kg Body Mass Index (BMI) 24.7 Finger Stick Blood Glucose 303 Intake and Output for Last 24 Hours 12/23/18 12/24/18 12/25/18 23:59 23:59 23:59 Intake Total 710 / 710 788 / 788 Balance 710 / 710 788 / 788 Laboratory Tests Past 24 Hrs 12/24/18 12/24/18 12/24/18 16:23 16:23 16:23 WBC 11.2 H RBC 4.17 L Hgb 12.5 Hct 37.9 MCV 90.9 MCH 30.0 MCHC 33.0 RDW 13.2 RDW Differential 43.2 Plt Count 271 MPV 8.9 Immature Gran % (Auto) 0.200 Neut % (Auto) 74.4 H Lymph % (Auto) 13.4 L [place] % (Auto) 9.8 Eos % (Auto) 1.8 Baso % (Auto) 0.4 Absolute Neuts (auto) 8.3 H Absolute Lymphs (auto) 1.49 Total Counted Not Reportable PT 16.8 H INR 1.4 APTT 32.8 Sodium 135 L Potassium 4.0 Chloride 101 Carbon Dioxide 30.0 Anion Gap 4 L BUN 11 Creatinine 0.87 Estim Creat Clear Calc 46.67 Est GFR (MDRD) Af Amer 80 Est GFR (MDRD) Non-Af 66 BUN/Creatinine Ratio 12.7 Glucose 300 H Hemoglobin A1c Calcium 8.5 Phosphorus Magnesium Troponin I 0.237 H Triglycerides Cholesterol LDL Cholesterol VLDL Cholesterol HDL Cholesterol TSH 12/24/18 12/24/18 12/24/18 19:58 19:58 22:08 WBC RBC Hgb Hct MCV MCH MCHC RDW RDW Differential Plt Count MPV Immature Gran % (Auto) Neut % (Auto) Lymph % (Auto) [place] % (Auto) Eos % (Auto) Baso % (Auto) Absolute Neuts (auto) Absolute Lymphs (auto) Total Counted PT INR APTT Sodium Potassium Chloride Carbon Dioxide Anion Gap BUN Creatinine Estim Creat Clear Calc Est GFR (MDRD) Af Amer Est GFR (MDRD) Non-Af BUN/Creatinine Ratio Glucose Hemoglobin A1c 8.4 H Calcium Phosphorus 2.5 Magnesium 1.8 Troponin I 0.288 H 0.285 H Triglycerides Cholesterol LDL Cholesterol VLDL Cholesterol HDL Cholesterol TSH 2.17 12/25/18 05:40 WBC RBC Hgb Hct MCV MCH MCHC RDW RDW Differential Plt Count MPV Immature Gran % (Auto) Neut % (Auto) Lymph % (Auto) [place] % (Auto) Eos % (Auto) Baso % (Auto) Absolute Neuts (auto) Absolute Lymphs (auto) Total Counted PT INR APTT Sodium Potassium Chloride Carbon Dioxide Anion Gap BUN Creatinine Estim Creat Clear Calc Est GFR (MDRD) Af Amer Est GFR (MDRD) Non-Af BUN/Creatinine Ratio Glucose Hemoglobin A1c Calcium Phosphorus Magnesium Troponin I Triglycerides 101 Cholesterol 161 LDL Cholesterol 93 VLDL Cholesterol 20 HDL Cholesterol 48 TSH POC Glucose 12/25/18 12/25/18 12/24/18 12:11 06:42 22:45 POC Glucose 154 H 161 H 193 H 12/24/18 16:21 POC Glucose 303 H Assessment/Plan All Active Problems (Last Reviewed 09/27/18 @ 14:46 by Solomon Fuentes MD) Transient visual loss of left eye (Acute) Elevated troponin I level (Acute) Stroke (Acute) cataract (Resolved) H/O colonoscopy (Resolved) History of dilatation and curettage (Resolved) H/O tubal ligation (Resolved) The patient is a 83 year old F with PMH HTN, HLD, DM, CAD, history of TIA, stage IV lung cancer followed by Dr. Rios, on Keytruda, paroxysmal atrial fibrillation on Eliquis, recently diagnosed DVT, hypothyroidism admitted with left eye visual disturbances. Per patient yesterday 12/24/2018 after having breakfast she felt that she was unable to see any colors over the left eye her left visual field was greenish in color, she closed her eyes and open her eyes and later in about 5 minutes her vision normalized, she denies any headache along with the visual disturbances, denies any focal motor weakness, sensory loss, weakness seizures, dizziness or speech disturbances. At present per patient her vision is at baseline. Patient's son Dr. Zavala is also at bedside. Per patient she was on Coumadin in the past for atrial fibrillation and then later was found to have DVTs about a week ago and has been transitioned to Eliquis for about a week. Per patient she did not miss any dose of Eliquis. She lives with her , does drive denies any falls does, does not do any assistance for her ADLs. Per patient since being on Keytruda for chemotherapy for lung cancer she has been having episodes of pneumonitis for which she has been treated with steroids, she also complains of having some difficulty in getting up from the bathtub since last week but denies any muscle pain or difficulty getting up from the chair or in and out of the car. CTA head/neck done on admission did not show any hemodynamically significant stenosis or occlusion. MRI brain without contrast done on admission reported to show multiple small bilateral acute infarcts in the left frontal, left parietal lobe and at the junction between the left parietal and occipital lobes, possibly also related to watershed etiology. 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 twice daily. Bleeding was discussed in detail. Continue Eliquis ?Lipitor 40 mg p.o. nightly if no contraindication ?MRI brain and CTA head/neck reviewed. MRI brain images reviewed with patient and her son Dr. Zavala at bedside. ?Await TTE ?LDL 93, HbA1c?8.4 ?Goal blood pressure less than 130/80 mmHg, avoid hypotension ?Goal LDL less than 70, goal Hb A1c less than 7% ?Stroke risk factors discussed and stroke education provided ?PT/OT/ST ?Ophthalmological evaluation ?Check ESR, total CK (Keytruda has a possible side effect of myositis) ?Further management of stage IV lung cancer per oncology team ?Further medical management per hospitalist team ?Fall precautions ?GI/DVT prophylaxis ?Follow-up with neurology in about 4 weeks as outpatient ?Please call with questions if any ?Thank you for allowing us to be in patient's care management. Code Visit Inpatient E&M: [id number] Init Hosp L3
--- NOTE | 2018-12-25 14:28 | CON.PCM_ITS ---
Problem List (1) Stroke Status: Acute Qualifiers: CVA mechanism: embolism Laterality of affected vessel: bilateral Reason for Consult Date of Consultation: 12/25/18 Reason for Consultation: Stroke History of Present Illness: The patient is a 83 year old F with PMH HTN, HLD, DM, CAD, history of TIA, stage IV lung cancer followed by Dr. Rios, on Keytruda, paroxysmal atrial fibrillation on Eliquis, recently diagnosed DVT, hypothyroidism admitted with left eye visual disturbances. Per patient yesterday 12/24/2018 after having breakfast she felt that she was unable to see any colors over the left eye her left visual field was greenish in color, she closed her eyes and open her eyes and later in about 5 minutes her vision normalized, she denies any headache along with the visual disturbances, denies any focal motor weakness, sensory loss, weakness seizures, dizziness or speech disturbances. At present per patient her vision is at baseline. Patient's son Dr. Zavala is also at bedside. Per patient she was on Coumadin in the past for atrial fibrillation and then later was found to have DVTs about a week ago and has been transitioned to Eliquis for about a week. Per patient she did not miss any dose of Eliquis. She lives with her , does drive denies any falls does, does not do any assistance for her ADLs. Per patient since being on Keytruda for chemotherapy for lung cancer she has been having episodes of pneumonitis for which she has been treated with steroids, she also complains of having some difficulty in getting up from the bathtub since last week but denies any muscle pain or difficulty getting up from the chair or in and out of the car. CTA head/neck done on admission did not show any hemodynamically significant stenosis or occlusion. MRI brain without contrast done on admission reported to show multiple small bilateral acute infarcts in the left frontal, left parietal lobe and at the junction between the left parietal and occipital lobes, possibly also related to watershed etiology. 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 Rios lung tube (Chronic) stage 4 lung cancer at [facility] Hyperlipidemia (Chronic) Hypertension (Chronic) Paroxysmal atrial tachycardia (Chronic) Carotid bruit (Chronic) Transient ischemic attack due to embolism (Chronic) Paroxysmal atrial fibrillation (Chronic) long-term (current) use of anticoagulants (Chronic) Medical History: Medical History (Last Reviewed 09/27/18 @ 14:46 by Solomon Fuetnes MD) Small cell lung carcinoma (Chronic) C34.90 Stage IV and follows Dr. 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) Z79.01 Allergies amoxicillin Allergy (Severe, Verified 12/24/18 19:37) Large hives oxycodone [From OxyIR] Allergy (Verified 12/24/18 19:37) Other passed out, low BP, sylvia Penicillins [PCN] Allergy (Verified 12/24/18 19:37) Rash Sulfa (Sulfonamide Antibiotics) Allergy (Verified 12/24/18 19:37) Rash rosuvastatin [From Crestor] Adverse Reaction (Mild, Verified 12/24/18 19:37) Other bones aching codeine Adverse Reaction (Verified 12/24/18 19:37) Other IRREG HEART BEAT hydrocodone Adverse Reaction (Verified 12/24/18 19:37) Other FAST HEART RATE Home Medications: Ambulatory Orders Medication Instructions Recorded Calcium Carbonate [Calcium] 600 mg PO DAILY 11/16/17 Ergocalciferol [Vitamin D] 50,000 unit PO WE 11/16/17 pembrolizumab 25 mg/mL intravenous 1 ml IV UD 01/10/18 solution atenolol 50 mg tablet 50 mg PO DAILY #90 tab 09/27/18 Insulin Glargine [Lantus SoloStar 10 units SQ QHS 12/14/18 Pen] Levothyroxine [Synthroid] 125 mcg PO DAILY 12/14/18 [place]-3S/Dha/Epa/Fish Oil [[place]-3 1,200 mg PO DAILY 12/14/18 Fish Oil 1,200 mg Sfgl] Apixaban [Eliquis] 5 mg PO BID 12/24/18 Doxycycline 100 mg PO BID 12/24/18 Metformin HCl mg PO DAILY 12/24/18 Surgical History: Surgical History (Last Reviewed 09/27/18 @ 14:46 by Solomon Fuentes MD) lung tube (Chronic) stage 4 lung cancer at [facility] cataract (Resolved) H/O colonoscopy (Resolved) Z98.890 History of dilatation and curettage (Resolved) Z98.890 H/O tubal ligation (Resolved) Z98.51 Surgical History: noncontributory Psychiatric History: 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 Lives: Alone Smoking Status: Never smoker Alcohol: None Drugs: None Review of Systems Constitutional: Reports: - - Complete ROS negative except as documented in HPI Patient Problems: Active and Suspected Problems (Last Reviewed 09/27/18 @ 14:46 by Solomon Fuentes MD) Transient visual loss of left eye (Acute) Elevated troponin I level (Acute) Stroke (Acute) - Physical Exam General: Alert HEENT: Normocephalic Neck: Supple Lungs: Normal air movement Cardiovascular: Normal S1, Normal S2 Abdomen: Bowel Sounds Present Extremities: No cyanosis Neurological: - - consious, alert, AoAx3, CN 2-12 grossly intact, power 5/5 all 4 extremities, no sensory loss, no cerebellar signs, Reflexes + B/L B/S/T/K/A, no sensory loss, gait deferred, NIHSS 0, mRS 1 at baseline Psych/Mental Status: Normal Affect Vital Signs Temp Pulse Resp BP Pulse Ox 98.4 F 64 16 139/66 H 97 12/25/18 12:00 12/25/18 12:00 12/25/18 12:00 12/25/18 12:00 12/25/18 12:00 Oxygen Delivery Method Room Air Weight: 69.4 kg Body Mass Index (BMI) 24.7 Finger Stick Blood Glucose 303 Intake and Output for Last 24 Hours 12/23/18 12/24/18 12/25/18 23:59 23:59 23:59 Intake Total 710 / 710 788 / 788 Balance 710 / 710 788 / 788 Laboratory Tests Past 24 Hrs 12/24/18 12/24/18 12/24/18 16:23 16:23 16:23 WBC 11.2 H RBC 4.17 L Hgb 12.5 Hct 37.9 MCV 90.9 MCH 30.0 MCHC 33.0 RDW 13.2 RDW Differential 43.2 Plt Count 271 MPV 8.9 Immature Gran % (Auto) 0.200 Neut % (Auto) 74.4 H Lymph % (Auto) 13.4 L [place] % (Auto) 9.8 Eos % (Auto) 1.8 Baso % (Auto) 0.4 Absolute Neuts (auto) 8.3 H Absolute Lymphs (auto) 1.49 Total Counted Not Reportable PT 16.8 H INR 1.4 APTT 32.8 Sodium 135 L Potassium 4.0 Chloride 101 Carbon Dioxide 30.0 Anion Gap 4 L BUN 11 Creatinine 0.87 Estim Creat Clear Calc 46.67 Est GFR (MDRD) Af Amer 80 Est GFR (MDRD) Non-Af 66 BUN/Creatinine Ratio 12.7 Glucose 300 H Hemoglobin A1c Calcium 8.5 Phosphorus Magnesium Troponin I 0.237 H Triglycerides Cholesterol LDL Cholesterol VLDL Cholesterol HDL Cholesterol TSH 12/24/18 12/24/18 12/24/18 19:58 19:58 22:08 WBC RBC Hgb Hct MCV MCH MCHC RDW RDW Differential Plt Count MPV Immature Gran % (Auto) Neut % (Auto) Lymph % (Auto) [place] % (Auto) Eos % (Auto) Baso % (Auto) Absolute Neuts (auto) Absolute Lymphs (auto) Total Counted PT INR APTT Sodium Potassium Chloride Carbon Dioxide Anion Gap BUN Creatinine Estim Creat Clear Calc Est GFR (MDRD) Af Amer Est GFR (MDRD) Non-Af BUN/Creatinine Ratio Glucose Hemoglobin A1c 8.4 H Calcium Phosphorus 2.5 Magnesium 1.8 Troponin I 0.288 H 0.285 H Triglycerides Cholesterol LDL Cholesterol VLDL Cholesterol HDL Cholesterol TSH 2.17 12/25/18 05:40 WBC RBC Hgb Hct MCV MCH MCHC RDW RDW Differential Plt Count MPV Immature Gran % (Auto) Neut % (Auto) Lymph % (Auto) [place] % (Auto) Eos % (Auto) Baso % (Auto) Absolute Neuts (auto) Absolute Lymphs (auto) Total Counted PT INR APTT Sodium Potassium Chloride Carbon Dioxide Anion Gap BUN Creatinine Estim Creat Clear Calc Est GFR (MDRD) Af Amer Est GFR (MDRD) Non-Af BUN/Creatinine Ratio Glucose Hemoglobin A1c Calcium Phosphorus Magnesium Troponin I Triglycerides 101 Cholesterol 161 LDL Cholesterol 93 VLDL Cholesterol 20 HDL Cholesterol 48 TSH POC Glucose 12/25/18 12/25/18 12/24/18 12:11 06:42 22:45 POC Glucose 154 H 161 H 193 H 12/24/18 16:21 POC Glucose 303 H Assessment/Plan All Active Problems (Last Reviewed 09/27/18 @ 14:46 by Solomon Fuentes MD) Transient visual loss of left eye (Acute) Elevated troponin I level (Acute) Stroke (Acute) cataract (Resolved) H/O colonoscopy (Resolved) History of dilatation and curettage (Resolved) H/O tubal ligation (Resolved) The patient is a 83 year old F with PMH HTN, HLD, DM, CAD, history of TIA, stage IV lung cancer followed by Dr. Rios, on Keytruda, paroxysmal atrial fibrillation on Eliquis, recently diagnosed DVT, hypothyroidism admitted with left eye visual disturbances. Per patient yesterday 12/24/2018 after having breakfast she felt that she was unable to see any colors over the left eye her left visual field was greenish in color, she closed her eyes and open her eyes and later in about 5 minutes her vision normalized, she denies any headache along with the visual disturbances, denies any focal motor weakness, sensory loss, weakness seizures, dizziness or speech disturbances. At present per patient her vision is at baseline. Patient's son Dr. Zavala is also at bedside. Per patient she was on Coumadin in the past for atrial fibrillation and then later was found to have DVTs about a week ago and has been transitioned to Eliquis for about a week. Per patient she did not miss any dose of Eliquis. Denny martins lives with her , does drive denies any falls does, does not do any assistance for her ADLs. Per patient since being on Keytruda for chemotherapy for lung cancer she has been having episodes of pneumonitis for which she has been treated with steroids, she also complains of having some difficulty in getting up from the bathtub since last week but denies any muscle pain or difficulty getting up from the chair or in and out of the car. CTA head/neck done on admission did not show any hemodynamically significant stenosis or occlusion. MRI brain without contrast done on admission reported to show multiple small bilateral acute infarcts in the left frontal, left parietal lobe and at the junction between the left parietal and occipital lobes, possibly also related to watershed etiology. 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 twice daily. Bleeding was discussed in detail. Continue Eliquis ?Lipitor 40 mg p.o. nightly if no contraindication ?MRI brain and CTA head/neck reviewed. MRI brain images reviewed with patient and her son Dr. Zavala at bedside. ?Await TTE ?LDL 93, HbA1c?8.4 ?Goal blood pressure less than 130/80 mmHg, avoid hypotension ?Goal LDL less than 70, goal Hb A1c less than 7% ?Stroke risk factors discussed and stroke education provided ?PT/OT/ST ?Ophthalmological evaluation ?Check ESR, total CK (Keytruda has a possible side effect of myositis) ?Further management of stage IV lung cancer per oncology team ?Further medical management per hospitalist team ?Fall precautions ?GI/DVT prophylaxis ?Follow-up with neurology in about 4 weeks as outpatient ?Please call with questions if any ?Thank you for allowing us to be in patient's care management. Code Visit Inpatient E&M: [id number] Init Hosp L3
[2018-12-25 15:36] LABS: Erythrocyte Sedimentation Rate 22 mm/hr (0-30)
--- NOTE | 2018-12-25 16:12 | PCM.PROGNOTE ---
Patient Problems: Active and Suspected Problems (Last Reviewed 09/27/18 @ 14:46 by Solomon Fuentes MD) Transient visual loss of left eye (Acute) Elevated troponin I level (Acute) Stroke (Acute) - Physical Exam Vital Signs Temp Pulse Resp BP Pulse Ox 98.4 F 64 16 139/66 H 97 12/25/18 12:00 12/25/18 12:00 12/25/18 12:00 12/25/18 12:00 12/25/18 12:00 Oxygen Delivery Method Room Air Weight: 153 lb 0.013 oz Body Mass Index (BMI) 24.7 Finger Stick Blood Glucose 303 Intake and Output for Last 24 Hours 12/23/18 12/24/18 12/25/18 23:59 23:59 23:59 Intake Total 710 / 710 788 / 788 Balance 710 / 710 788 / 788 Laboratory Tests Past 24 Hrs 12/24/18 12/24/18 12/24/18 16:23 16:23 16:23 WBC 11.2 H RBC 4.17 L Hgb 12.5 Hct 37.9 MCV 90.9 MCH 30.0 MCHC 33.0 RDW 13.2 RDW Differential 43.2 Plt Count 271 MPV 8.9 Immature Gran % (Auto) 0.200 Neut % (Auto) 74.4 H Lymph % (Auto) 13.4 L [place] % (Auto) 9.8 Eos % (Auto) 1.8 Baso % (Auto) 0.4 Absolute Neuts (auto) 8.3 H Absolute Lymphs (auto) 1.49 Total Counted Not Reportable ESR PT 16.8 H INR 1.4 APTT 32.8 Sodium 135 L Potassium 4.0 Chloride 101 Carbon Dioxide 30.0 Anion Gap 4 L BUN 11 Creatinine 0.87 Estim Creat Clear Calc 46.67 Est GFR (MDRD) Af Amer 80 Est GFR (MDRD) Non-Af 66 BUN/Creatinine Ratio 12.7 Glucose 300 H Hemoglobin A1c Calcium 8.5 Phosphorus Magnesium Total Creatine Kinase Troponin I 0.237 H Triglycerides Cholesterol LDL Cholesterol VLDL Cholesterol HDL Cholesterol TSH 12/24/18 12/24/18 12/24/18 19:58 19:58 22:08 WBC RBC Hgb Hct MCV MCH MCHC RDW RDW Differential Plt Count MPV Immature Gran % (Auto) Neut % (Auto) Lymph % (Auto) [place] % (Auto) Eos % (Auto) Baso % (Auto) Absolute Neuts (auto) Absolute Lymphs (auto) Total Counted ESR PT INR APTT Sodium Potassium Chloride Carbon Dioxide Anion Gap BUN Creatinine Estim Creat Clear Calc Est GFR (MDRD) Af Amer Est GFR (MDRD) Non-Af BUN/Creatinine Ratio Glucose Hemoglobin A1c 8.4 H Calcium Phosphorus 2.5 Magnesium 1.8 Total Creatine Kinase Troponin I 0.288 H 0.285 H Triglycerides Cholesterol LDL Cholesterol VLDL Cholesterol HDL Cholesterol TSH 2.17 12/25/18 12/25/18 12/25/18 05:40 05:40 05:40 WBC RBC Hgb Hct MCV MCH MCHC RDW RDW Differential Plt Count MPV Immature Gran % (Auto) Neut % (Auto) Lymph % (Auto) [place] % (Auto) Eos % (Auto) Baso % (Auto) Absolute Neuts (auto) Absolute Lymphs (auto) Total Counted ESR 22 PT INR APTT Sodium Potassium Chloride Carbon Dioxide Anion Gap BUN Creatinine Estim Creat Clear Calc Est GFR (MDRD) Af Amer Est GFR (MDRD) Non-Af BUN/Creatinine Ratio Glucose Hemoglobin A1c Calcium Phosphorus Magnesium Total Creatine Kinase Pending Troponin I Triglycerides 101 Cholesterol 161 LDL Cholesterol 93 VLDL Cholesterol 20 HDL Cholesterol 48 TSH POC Glucose 12/25/18 12/25/18 12/24/18 12:11 06:42 22:45 POC Glucose 154 H 161 H 193 H 12/24/18 16:21 POC Glucose 303 H Medical Necessity - Tobacco Use Smoking Status: Never smoker Assessment/Plan All Active Problems (Last Reviewed 09/27/18 @ 14:46 by Solomon Fuentes MD) Transient visual loss of left eye (Acute) Elevated troponin I level (Acute) Stroke (Acute) cataract (Resolved) H/O colonoscopy (Resolved) History of dilatation and curettage (Resolved) H/O tubal ligation (Resolved)
[2018-12-25 16:13] LABS: CPK Total, Creatine Kinase 31 U/L (26-192)
--- NOTE | 2018-12-25 16:35 | PN_ITS ---
Patient Problems: Active and Suspected Problems (Last Reviewed 09/27/18 @ 14:46 by Solomon Fuentes MD) Transient visual loss of left eye (Acute) Elevated troponin I level (Acute) Stroke (Acute) Subjective: No further issues overnight. No recurrence of vision change. No LH/Dizziness. No events on tele overnight. No focal weakness. No numbness/tingling. No speech changes. Still some BL leg weakness but walked well with PTOT - Physical Exam General: Alert, Oriented x3, Cooperative HEENT: Atraumatic, PERRLA, EOMI, Normocephalic Neck: Supple, No JVD, Negative Carotid Bruits Lungs: Clear to auscultation, Normal air movement Cardiovascular: Regular rate, No murmurs Abdomen: Bowel Sounds Present, Soft, Non Tender Extremities: No edema, Capillary Refill Less than 3 Seconds Skin: No rashes, No breakdown Musculoskeletal: No Tenderness to Palpation of Joints or Extremities Neurological: Cranial nerves II-XII grossly intact Psych/Mental Status: Normal Affect, Appropriate, Alert and oriented to time, place, person, mood and affect Vital Signs Temp Pulse Resp BP Pulse Ox 99.0 F 67 16 137/60 H 97 12/25/18 16:00 12/25/18 16:00 12/25/18 16:00 12/25/18 16:00 12/25/18 16:00 Oxygen Delivery Method Room Air Weight: 153 lb 0.013 oz Body Mass Index (BMI) 24.7 Finger Stick Blood Glucose 303 Intake and Output for Last 24 Hours 12/23/18 12/24/18 12/25/18 23:59 23:59 23:59 Intake Total 710 / 710 788 / 788 Balance 710 / 710 788 / 788 Laboratory Tests Past 24 Hrs 12/24/18 12/24/18 12/24/18 16:23 16:23 16:23 WBC 11.2 H RBC 4.17 L Hgb 12.5 Hct 37.9 MCV 90.9 MCH 30.0 MCHC 33.0 RDW 13.2 RDW Differential 43.2 Plt Count 271 MPV 8.9 Immature Gran % (Auto) 0.200 Neut % (Auto) 74.4 H Lymph % (Auto) 13.4 L [place] % (Auto) 9.8 Eos % (Auto) 1.8 Baso % (Auto) 0.4 Absolute Neuts (auto) 8.3 H Absolute Lymphs (auto) 1.49 Total Counted Not Reportable ESR PT 16.8 H INR 1.4 APTT 32.8 Sodium 135 L Potassium 4.0 Chloride 101 Carbon Dioxide 30.0 Anion Gap 4 L BUN 11 Creatinine 0.87 Estim Creat Clear Calc 46.67 Est GFR (MDRD) Af Amer 80 Est GFR (MDRD) Non-Af 66 BUN/Creatinine Ratio 12.7 Glucose 300 H Hemoglobin A1c Calcium 8.5 Phosphorus Magnesium Total Creatine Kinase Troponin I 0.237 H Triglycerides Cholesterol LDL Cholesterol VLDL Cholesterol HDL Cholesterol TSH 12/24/18 12/24/18 12/24/18 19:58 19:58 22:08 WBC RBC Hgb Hct MCV MCH MCHC RDW RDW Differential Plt Count MPV Immature Gran % (Auto) Neut % (Auto) Lymph % (Auto) [place] % (Auto) Eos % (Auto) Baso % (Auto) Absolute Neuts (auto) Absolute Lymphs (auto) Total Counted ESR PT INR APTT Sodium Potassium Chloride Carbon Dioxide Anion Gap BUN Creatinine Estim Creat Clear Calc Est GFR (MDRD) Af Amer Est GFR (MDRD) Non-Af BUN/Creatinine Ratio Glucose Hemoglobin A1c 8.4 H Calcium Phosphorus 2.5 Magnesium 1.8 Total Creatine Kinase Troponin I 0.288 H 0.285 H Triglycerides Cholesterol LDL Cholesterol VLDL Cholesterol HDL Cholesterol TSH 2.17 12/25/18 12/25/18 12/25/18 05:40 05:40 05:40 WBC RBC Hgb Hct MCV MCH MCHC RDW RDW Differential Plt Count MPV Immature Gran % (Auto) Neut % (Auto) Lymph % (Auto) [place] % (Auto) Eos % (Auto) Baso % (Auto) Absolute Neuts (auto) Absolute Lymphs (auto) Total Counted ESR 22 PT INR APTT Sodium Potassium Chloride Carbon Dioxide Anion Gap BUN Creatinine Estim Creat Clear Calc Est GFR (MDRD) Af Amer Est GFR (MDRD) Non-Af BUN/Creatinine Ratio Glucose Hemoglobin A1c Calcium Phosphorus Magnesium Total Creatine Kinase 31 Troponin I Triglycerides 101 Cholesterol 161 LDL Cholesterol 93 VLDL Cholesterol 20 HDL Cholesterol 48 TSH POC Glucose 12/25/18 12/25/18 12/24/18 12:11 06:42 22:45 POC Glucose 154 H 161 H 193 H Medical Necessity - Tobacco Use Smoking Status: Never smoker Assessment/Plan All Active Problems (Last Reviewed 09/27/18 @ 14:46 by Solomon Fuentes MD) Transient visual loss of left eye (Acute) Elevated troponin I level (Acute) Stroke (Acute) cataract (Resolved) H/O colonoscopy (Resolved) History of dilatation and curettage (Resolved) H/O tubal ligation (Resolved) 1. 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 negative CTAs. Neuro following. Continue eliquis. Changed from warfarin >1 week ago for failure of therapy (developed DVTs). Monitor overnight on tele. TSH normal. Statin allergic. Echo with preserved EF, negative bubble study. No thrombosis on echo. RVSP 47. 2. Elevated troponin - presume 2/2 Acute strokes. Flat pattern. No EKG changes. Negative tele. No CP. Cardiology following. 3. Stage IV NSCLC - pt of Dr. Rios, about 1 year into Keytruda therapy. Mildly SOB chronically, not on O2. Never smoked, and denies 2nd hand smoke exposure. Reports intermittent diarrhea with keytruda 4. DMt2 - with hyperglycemia - continue lantus, add SSI. 5. Paroxysmal Afib - in NSR. Rate controlled. Atenolol and eliquis - continue. DVT ppx: elinadir [place] planning: monitor tele overnight. Likely home tomorrow. F/u Oncology. This patient was seen by Navin Ortiz PA-C under the supervision of Dr. Juárez.
[2018-12-25 17:32] LABS: Bedside Glucose 180 mg/dL (70-110)
[2018-12-25 23:01] LABS: Bedside Glucose 155 mg/dL (70-110)
[2018-12-26] VITALS: BP 132/62; PULSE 74; RESP 16; TEMP 36.9; O2SAT 96
[2018-12-26 01:19] VITALS: BMI 24.7
[2018-12-26 03:19] VITALS: PULSE 69
[2018-12-26 04:00] VITALS: BP 140/66; PULSE 71; RESP 16; TEMP 37.3; O2SAT 92
[2018-12-26] MEDS: Acetaminophen 325 MG Tablet 650 MG PO (06:36)
[2018-12-26] MEDS: Levothyroxine 125 MCG Tablet PO (06:36)
[2018-12-26 06:55] LABS: Bedside Glucose 116 mg/dL (70-110)
[2018-12-26 07:00] VITALS: PULSE 67
[2018-12-26 07:30] VITALS: O2SAT 92
[2018-12-26 08:00] VITALS: BP 115/64; PULSE 68; RESP 16; TEMP 36.6; O2SAT 94
[2018-12-26] MEDS: APIXABAN 5 MG TABLET PO (10:40)
[2018-12-26] MEDS: Atenolol 50 MG Tablet PO (10:40)
[2018-12-26] MEDS: Doxycycline 100 MG CAPSULE PO (10:40)
[2018-12-26] MEDS: Aspirin 81 MG TAB.CHEW PO (10:40)
--- NOTE | 2018-12-26 11:22 | DCINST_ITS ---
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) You will use the following diet at home:: No restrictions Your food should be the consistency of: Regular Your liquids should be the consistency of: Regular/Thin Discharge Activity: Return to Normal Activity Allergies/Adverse Reactions: Allergies amoxicillin Allergy (Severe, Verified 12/24/18 19:37) Large hives oxycodone [From OxyIR] Allergy (Verified 12/24/18 19:37) Other passed out, low BP, sylvia Penicillins [PCN] Allergy (Verified 12/24/18 19:37) Rash Sulfa (Sulfonamide Antibiotics) Allergy (Verified 12/24/18 19:37) Rash rosuvastatin [From Crestor] Adverse Reaction (Mild, Verified 12/24/18 19:37) Other bones aching codeine Adverse Reaction (Verified 12/24/18 19:37) Other [employer] hydrocodone Adverse Reaction (Verified 12/24/18 19:37) Other FAST HEART RATE Medications to take at Discharge Calcium Carbonate [Calcium] 600 mg PO DAILY 11/16/17 Ergocalciferol [Vitamin D] 50,000 unit PO WE 11/16/17 pembrolizumab 25 mg/mL intravenous solution 1 ml IV UD 01/10/18 atenolol 50 mg tablet 50 mg PO DAILY #90 tab 09/27/18 Insulin Glargine [Lantus SoloStar Pen] 10 units SQ QHS 12/14/18 Levothyroxine [Synthroid] 125 mcg PO DAILY 12/14/18 [place]-3S/Dha/Epa/Fish Oil [[place]-3 Fish Oil 1,200 mg Sfgl] 1,200 mg PO DAILY 12/14/18 Apixaban [Eliquis] 5 mg PO BID 12/24/18 Doxycycline 100 mg PO BID 12/24/18 Metformin HCl mg PO DAILY 12/24/18 Primary Care Physician: Gayatri Duque MD [Primary Care Provider] - Please follow up with your Primary Care Physician in: 2 weeks Test Results: Test results from this visit will be discussed in further detail at your follow- up appointment, if applicable. Please Follow Up With: Humberto Rios DO When: As directed Please Follow Up With: Francisco Bell MD When: 3-4 weeks Please Follow Up With: Solomon Fuentes MD When: Call for appointment Proposed Discharge Date: 12/26/18
[2018-12-26] MEDS: Insulin Lispro 100 UNIT/ML INSULN.PEN SC (11:27)
[2018-12-26 12:11] LABS: Bedside Glucose 200 mg/dL (70-110)
--- NOTE | 2018-12-26 15:35 | PCM.DC.SUM ---
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 RAD/Chest PA and Lateral IMPRESSION: No acute findings. CT/CTA Head W/WO Contrast IMPRESSION: Normal [place] without a demonstrated aneurysm or hemodynamically significant stenosis. CT/CTA Neck W/WO Contrast IMPRESSION: Atretic right vertebral artery. The study is otherwise normal Echo: Interpretation Summary Left ventricular systolic function is normal. The estimated ejection fraction is 65 %. The left atrium is mildly enlarged. The right atrium is mildly enlarged. Mild (1+) eccentric mitral valve insufficiency. Mild tricuspid valve insufficiency. Trivial pulmonic valve insufficiency. Right ventricular systolic pressure estimated to be 47 mmHg. Transmitral diastolic flow velocities suggest diastolic dysfunction (pseudonormal pattern). MRI/Brain without Contrast IMPRESSION: 1. Involutional changes of the brain, as described above. 2. Multiple bilateral acute infarcts, left greater than right, possibly related to watershed etiology. N.B. : The above information has been verbally conveyed by Nneka Ambriz MD to Charge Nurse Geremias Owusu RN, on 12/25/2018 08:14:20 (ET). CONSULTS: Neurology - [facility] - [place] Operations: None, - - left tunneled thoracic catheter placement Procedures: 2-D Echocardiogram Summary of Care Provided: Hospital course: The patient is a 83 year old F with pmhx stage 4 lung cancer NSC on keytruda with Dr. Rios, hx of PAfib, DVTs, DMt2, who presented to the ER with complaints of color vision loss in her left eye. She was sitting at home and her left eye vision went silva. She gradually had color return over about 5 minutes. She went to the opthalmologist, who then sent her to the ER. The patient had recently changed from warfarin to eliquis over 1 week prior to this happening, as she had DVTs develop while on warfarin. CT brain was negative. Troponin was indeterminate as well. Neuro and Cardiology were consulted and she was admitted to the PCU for suspected CVA. MRI brain the following day demonstrated watershed stroke. The patient was already on eliquis. She is statin allergic. EKG was NSR. Echo was obtained. No ASD, and with preserved EF, no thrombosis, RVSP 47mmHg. Cardiology did not feel further workup or medication change was warranted. She did not have recurrence of her symptoms. She was discharged home in stable condition. She will need to follow up with Dr. Rios as directed, Cardiology as directed, PCP in 1-2 weeks, and with Neurology in 3-4 weeks. This patient was seen by Navin Ortiz PA-C under the supervision of Doctor Juárez. [] - Physical Exam General: Alert, Oriented x3, Cooperative HEENT: Atraumatic, PERRLA, EOMI, Normocephalic Neck: Supple, No JVD, Negative Carotid Bruits Lungs: Clear to auscultation, Normal air movement Cardiovascular: Regular rate, No murmurs Abdomen: Bowel Sounds Present, Soft, Non Tender Extremities: No edema, Capillary Refill Less than 3 Seconds Skin: No rashes, No breakdown Musculoskeletal: No Tenderness to Palpation of Joints or Extremities Neurological: Cranial nerves II-XII grossly intact Psych/Mental Status: Normal Affect, Appropriate Vital Signs Temp Pulse Resp BP Pulse Ox 97.8 F 68 16 115/64 94 12/26/18 08:00 12/26/18 08:00 12/26/18 08:00 12/26/18 08:00 12/26/18 08:00 Oxygen Delivery Method Room Air Weight: 153 lb 0.013 oz Body Mass Index (BMI) 24.7 Finger Stick Blood Glucose 303 Intake and Output for Last 24 Hours 12/24/18 12/25/18 12/26/18 23:59 23:59 23:59 Intake Total 710 / 710 788 / 788 360 / 360 Balance 710 / 710 788 / 788 360 / 360 Laboratory Tests Past 24 Hrs 12/25/18 12/25/18 05:40 05:40 ESR 22 Total Creatine Kinase 31 POC Glucose 12/26/18 12/26/18 12/25/18 11:25 06:34 22:47 POC Glucose 200 H 116 H 155 H 12/25/18 17:24 POC Glucose 180 H Discharge Diet: No Restrictions Discharge Activity: Return to Normal Activity Home Medications: Medications to take at Discharge Calcium Carbonate [Calcium] 600 mg PO DAILY 11/16/17 Ergocalciferol [Vitamin D] 50,000 unit PO WE 11/16/17 pembrolizumab 25 mg/mL intravenous solution 1 ml IV UD 01/10/18 atenolol 50 mg tablet 50 mg PO DAILY #90 tab 09/27/18 Insulin Glargine [Lantus SoloStar Pen] 10 units SQ QHS 12/14/18 Levothyroxine [Synthroid] 125 mcg PO DAILY 12/14/18 [place]-3S/Dha/Epa/Fish Oil [[place]-3 Fish Oil 1,200 mg Sfgl] 1,200 mg PO DAILY 12/14/18 Apixaban [Eliquis] 5 mg PO BID 12/24/18 Doxycycline 100 mg PO BID 12/24/18 Metformin HCl mg PO DAILY 12/24/18 Primary Care Physician: Gayatri Duque MD [Primary Care Provider] - Please follow up with your Primary Care Physician in: 2 weeks Please Follow Up With: Humberto Rios DO When: As directed Please Follow Up With: Francisco Bell MD When: 3-4 weeks Please Follow Up With: Solomon Fuentes MD When: Call for appointment Please Follow Up With: Gayatri Duque MD Disposition: Home Minutes spent on discharge:: 35 Patient Condition:: Stable Medical Necessity - Tobacco Use Smoking Status: Never smoker Meaningful Use Info Meaningful Use Diagnoses (Choose all that apply): Ischemic CVA - CVA Therapy Assessed for PT,OT and/or ST?: Yes - Ischemic Stroke Antithrombotic order at d/c?: No Reason antithrombotic not ordered: Procedure not Indicated Dx of Atrial fib/flutter?: Yes Anticoagulant at discharge?: Yes Statins at discharge?: No Reason Statin not ordered: Drug Allergy Primary Dx Acute Ischemic CVA?: Yes IV tPA ordered during stay?: No Reason IV t-PA not ordered: Procedure not Indicated
--- NOTE | 2018-12-26 15:44 | DS.PCM_ITS ---
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 RAD/Chest PA and Lateral IMPRESSION: No acute findings. CT/CTA Head W/WO Contrast IMPRESSION: Normal [place] without a demonstrated aneurysm or hemodynamically significant stenosis. CT/CTA Neck W/WO Contrast IMPRESSION: Atretic right vertebral artery. The study is otherwise normal Echo: Interpretation Summary Left ventricular systolic function is normal. The estimated ejection fraction is 65 %. The left atrium is mildly enlarged. The right atrium is mildly enlarged. Mild (1+) eccentric mitral valve insufficiency. Mild tricuspid valve insufficiency. Trivial pulmonic valve insufficiency. Right ventricular systolic pressure estimated to be 47 mmHg. Transmitral diastolic flow velocities suggest diastolic dysfunction (pseudonormal pattern). MRI/Brain without Contrast IMPRESSION: 1. Involutional changes of the brain, as described above. 2. Multiple bilateral acute infarcts, left greater than right, possibly related to watershed etiology. N.B. : The above information has been verbally conveyed by Nneka Ambriz MD to Charge Nurse Geremias Owusu RN, on 12/25/2018 08:14:20 (ET). CONSULTS: Neurology - [facility] - [place] Operations: None, - - left tunneled thoracic catheter placement Procedures: 2-D Echocardiogram Summary of Care Provided: Hospital course: The patient is a 83 year old F with pmhx stage 4 lung cancer NSC on keytruda with Dr. Rios, hx of PAfib, DVTs, DMt2, who presented to the ER with complaints of color vision loss in her left eye. She was sitting at home and her left eye vision went silva. She gradually had color return over about 5 minutes. She went to the opthalmologist, who then sent her to the ER. The patient had recently changed from warfarin to eliquis over 1 week prior to this happening, as she had DVTs develop while on warfarin. CT brain was negative. Troponin was indeterminate as well. Neuro and Cardiology were consulted and she was admitted to the PCU for suspected CVA. MRI brain the following day demonstrated watershed stroke. The patient was already on eliquis. She is statin allergic. EKG was NSR. Echo was obtained. No ASD, and with preserved EF, no thrombosis, RVSP 47mmHg. Cardiology did not feel further workup or medication change was warranted. She did not have recurrence of her symptoms. She was discharged home in stable condition. She will need to follow up with Dr. Rios as directed, Cardiology as directed, PCP in 1-2 weeks, and with Neurology in 3-4 weeks. This patient was seen by Navin Ortiz PA-C under the supervision of Doctor Juárez. [] - Physical Exam General: Alert, Oriented x3, Cooperative HEENT: Atraumatic, PERRLA, EOMI, Normocephalic Neck: Supple, No JVD, Negative Carotid Bruits Lungs: Clear to auscultation, Normal air movement Cardiovascular: Regular rate, No murmurs Abdomen: Bowel Sounds Present, Soft, Non Tender Extremities: No edema, Capillary Refill Less than 3 Seconds Skin: No rashes, No breakdown Musculoskeletal: No Tenderness to Palpation of Joints or Extremities Neurological: Cranial nerves II-XII grossly intact Psych/Mental Status: Normal Affect, Appropriate Vital Signs Temp Pulse Resp BP Pulse Ox 97.8 F 68 16 115/64 94 12/26/18 08:00 12/26/18 08:00 12/26/18 08:00 12/26/18 08:00 12/26/18 08:00 Oxygen Delivery Method Room Air Weight: 153 lb 0.013 oz Body Mass Index (BMI) 24.7 Finger Stick Blood Glucose 303 Intake and Output for Last 24 Hours 12/24/18 12/25/18 12/26/18 23:59 23:59 23:59 Intake Total 710 / 710 788 / 788 360 / 360 Balance 710 / 710 788 / 788 360 / 360 Laboratory Tests Past 24 Hrs 12/25/18 12/25/18 05:40 05:40 ESR 22 Total Creatine Kinase 31 POC Glucose 12/26/18 12/26/18 12/25/18 11:25 06:34 22:47 POC Glucose 200 H 116 H 155 H 12/25/18 17:24 POC Glucose 180 H Discharge Diet: No Restrictions Discharge Activity: Return to Normal Activity Home Medications: Medications to take at Discharge Calcium Carbonate [Calcium] 600 mg PO DAILY 11/16/17 Ergocalciferol [Vitamin D] 50,000 unit PO WE 11/16/17 pembrolizumab 25 mg/mL intravenous solution 1 ml IV UD 01/10/18 atenolol 50 mg tablet 50 mg PO DAILY #90 tab 09/27/18 Insulin Glargine [Lantus SoloStar Pen] 10 units SQ QHS 12/14/18 Levothyroxine [Synthroid] 125 mcg PO DAILY 12/14/18 [place]-3S/Dha/Epa/Fish Oil [[place]-3 Fish Oil 1,200 mg Sfgl] 1,200 mg PO DAILY 12/14/18 Apixaban [Eliquis] 5 mg PO BID 12/24/18 Doxycycline 100 mg PO BID 12/24/18 Metformin HCl mg PO DAILY 12/24/18 Primary Care Physician: Gayatri Duque MD [Primary Care Provider] - Please follow up with your Primary Care Physician in: 2 weeks Please Follow Up With: Humberto Rios DO When: As directed Please Follow Up With: Francisco Bell MD When: 3-4 weeks Please Follow Up With: Solomon Fuentes MD When: Call for appointment Please Follow Up With: Gayatri Duque MD Disposition: Home Minutes spent on discharge:: 35 Patient Condition:: Stable Medical Necessity - Tobacco Use Smoking Status: Never smoker Meaningful Use Info Meaningful Use Diagnoses (Choose all that apply): Ischemic CVA - CVA Therapy Assessed for PT,OT and/or ST?: Yes - Ischemic Stroke Antithrombotic order at d/c?: No Reason antithrombotic not ordered: Procedure not Indicated Dx of Atrial fib/flutter?: Yes Anticoagulant at discharge?: Yes Statins at discharge?: No Reason Statin not ordered: Drug Allergy Primary Dx Acute Ischemic CVA?: Yes IV tPA ordered during stay?: No Reason IV t-PA not ordered: Procedure not Indicated
--- NOTE | 2018-12-26 16:06 | CASEMGMT ---
SW completed PHQ-9 with patient as she had a Stroke. Patient scored a 2 which indicates minimal depression. She indicated she has felt tired and less interested as she has not felt well due to having Stage IV Lung CA. She denies Depression. Dara MONTGOMERY MSW
--- NOTE | 2018-12-28 14:34 | CASEMGMT ---
RN YUDITH DC PHONE CALL DC DATE: 12/26/18 DC Disposition: Home LACE/STRATA: 07/07 Intro role of CM to patient. Pt states she is doing well, does not have questions re: f/u or prescriptions. Dr. Rios is changing her medication Eliquis to Lovenox and will be calling in a script to her pharmacy. Pt does take insulin and states she is able to give herself the injections. Also states her daughter is a nurse and will assist her with picking up prescription and explaining injections. -No care improvement suggestions given. Pt states her care @ [facility] was excellent. Eugenio CHAVISN RN ACM
== END 2018-12-26 14:10 | disposition home or self-care (01) | DRG 65 ==
LOC: ED 17:54 → PCU 18:30
PROVIDERS: Psychiatry & Neurology Neurology; Admitting Provider Family Medicine; Emergency Provider Emergency Medicine; Family Provider Family Medicine; PCP Family Medicine; Visit Provider Internal Medicine
DX: I63.40 Cerebral infarction due to embolism of unspecified cerebral artery (principal); C34.90 Malignant neoplasm of unspecified part of unspecified bronchus or lung; I48.0 Paroxysmal atrial fibrillation; E11.65 Type 2 diabetes mellitus with hyperglycemia; H53.8 Other visual disturbances; I25.10 Atherosclerotic heart disease of native coronary artery without angina pectoris; E03.9 Hypothyroidism, unspecified; Z79.899 Other long term (current) drug therapy; Z79.01 Long term (current) use of anticoagulants; Z86.718 Personal history of other venous thrombosis and embolism; Z79.4 Long term (current) use of insulin
CPT/HCPCS: 36415; 70450; 70496; 70498; 70551; 71046; 80048; 80061; 82550; 82962; 83036; 83735; 84100; 84443; 84484; 85025; 85610; 85652; 85730; 92610; 93005; 93306; 97162; 97166; 97802; 99285; J7030; Q9967; A4216

== ENCOUNTER → 2018-12-27 | Outpatient (CLI) | payer MEDICARE, BC, SELFPAY ==
[2018-12-26 01:19] VITALS: BMI 24.7
--- NOTE | 2018-12-27 10:44 | VDLE_ITS ---
Reason For Study: BLE DVT RIGHT LEFT GSV is normal. CFV is compressible, spontaneous, phasic, CFV is compressible, spontaneous, phasic, competent, and demonstrates normal competent and demonstrates normal augmentation. augmentation. FV is compressible, spontaneous, phasic, FV is compressible, spontaneous, phasic, competent and demonstrates normal competent and demonstrates normal augmentation. augmentation. POP V is compressible, spontaneous, phasic, POP V is compressible, spontaneous, phasic, competent and demonstrates normal competent and demonstrates normal augmentation. augmentation. T/P trunk is partially compressible witn T/P Trunk is compressible. intraluminal echoes PTV is compressible. PTV, PER V, Gastrocs, and Soleus v are SSV is non-compressible with mixed dilated and non-compressible. echogenicity GSV is compressible in thigh PER V is dilated and non-compressible. GSV is non-compressible in calf. Procedure Exam performed in department. A preliminary report was called and/or faxed to Dr. Rios. Interpretation Summary Acute deep venous thrombosis right peroneal vein Superficial thrombophlebitis right small saphenous vein Acute deep venous thrombosis left tibioperoneal trunk, posterior tibial, peroneal, gastrocnemius, and soleus veins Superficial thrombophlebitis left great saphenous vein of the calf. The left great saphenous vein involvement is new from the previous examination of 12/14/18. Ordering Physician: Humberto Rios Referring Physician: Gyaatri Duque Performed By: Yuridia Trejo RVT
== END | disposition home or self-care (01) ==
LOC: CVS 10:41
PROVIDERS: Family Provider Family Medicine; PCP Family Medicine; Referring Provider Internal Medicine Hematology & Oncology; Visit Provider Internal Medicine Hematology & Oncology
DX: I82.4Z3 Acute embolism and thrombosis of unspecified deep veins of distal lower extremity, bilateral (principal); C33 Malignant neoplasm of trachea; C34.80 Malignant neoplasm of overlapping sites of unspecified bronchus and lung
CPT/HCPCS: 93970

== ENCOUNTER → 2019-02-04 | Outpatient (CLI) | payer MEDICARE, BC, SELFPAY ==
[2019-01-11 14:11] VITALS: BMI 24.2
--- NOTE | 2019-02-04 09:22 | MRI_ITS ---
STUDY: MRI BRAIN WITH AND WITHOUT CONTRAST REASON FOR EXAM: Female, 83 years old. Lung cancer and stroke TECHNIQUE: Standardized multiplanar fat and water weighted pulse sequences were obtained. 13 IV Dotarem was administered for the contrast portion of the examination. COMPARISON: 12/25/2018 FINDINGS: Normal size of the ventricles and extra-axial spaces for the patient's age. There are multiple confluent white matter hyperintensities, distributed throughout the deep white matter tracts of the cerebral hemispheres, consistent with severe chronic white matter ischemic changes. Small acute infarcts are present involving the medial left occipital cortex. A punctate subacute infarct is also present in the superior posterior left frontal lobe. Remote left occipital laminar necrosis. Normal bilateral basal ganglia. Normal thalami. There is no extra-axial fluid accumulation. Normal flow voids within the major intracranial circulation suggesting patency by spin echo criteria. Normal venous enhancement. There is no enhancing intra-axial or extra-axial abnormality. Normal sella turcica, pituitary gland, infundibular stalk, optic chiasm and hypothalamus. Normal tectal plate and pineal gland. Normal midbrain, lilian and medulla. Normal cerebellum. Normal basal cisterns. Normal bilateral temporal bones. Normal bilateral internal auditory canals. There are bilateral ocular lens implants with otherwise normal intraorbital contents. Normal visualized paranasal sinuses. Right mastoid sinus disease. Normal visualized soft tissue structures. Normal visualized upper cervical spine. MRI/Brain W/WO Contrast IMPRESSION: Small acute infarcts are present involving the medial left occipital cortex. A punctate subacute infarct is also present in the superior posterior left frontal lobe. Remote left occipital laminar necrosis. No evidence of intracranial metastatic disease. Electronically Signed: Nixon Rosa MD at 11:21 EDT Tel , Service support ,
== END | disposition home or self-care (01) ==
LOC: MRI 09:15
PROVIDERS: Family Provider Family Medicine; PCP Family Medicine; Referring Provider Internal Medicine Hematology & Oncology; Visit Provider Internal Medicine Hematology & Oncology
DX: G45.0 Vertebro-basilar artery syndrome (principal); C34.90 Malignant neoplasm of unspecified part of unspecified bronchus or lung; J91.0 Malignant pleural effusion
CPT/HCPCS: 70553; A9575

== ENCOUNTER → 2019-04-15 | Outpatient (CLI) | payer MEDICARE, BC, SELFPAY ==
[2019-03-21 12:48] VITALS: BMI 23.8
--- NOTE | 2019-04-15 10:00 | PET_ITS ---
EXAMINATION: FDG PET/CT INDICATIONS: An 83-year-old female with reported history of carcinoma of the lung presenting for restaging examination. COMPARISON EXAMINATION: Prior FDG PET study dated 11/20/17, MRI of the brain report dated 02/04/19 INDEX LESION SIZE SUV INTERPRETATION PERSISTENT: left mid anterior hemithorax pulmonary parenchyma, left upper lobe 6.3-mm (frame 164) comp. to 15.3-mm (11/20/17) 1.2 comp. to 2.5 (11/20/17) Quantitative criteria for viable neoplasm are not fulfilled NEW: mediastinal structures, left thoracic perihilum 31.5-mm (largest) (frame 184) 3.3 (max) Fulfills borderline quantitative criteria for viable neoplasm, histopathologic analysis may be indicated NEW: left lateral neck level III 16.4-mm (largest) (frame 229) 2.4 (max) Fulfills borderline quantitative criteria for viable neoplasm, may necessitate histopathologic investigation TECHNIQUE: Following the intravenous administration of 16.6 mCi of F-18 deoxyglucose via the right antecubital fossa, multiplanar image acquisitions of the neck, chest, abdomen and pelvis to level of mid thigh, obtained at one hour post radiopharmaceutical administration contemporaneously interpreted with the current CT of the neck, chest, abdomen and pelvis to level of mid thigh, dated 04/15/19 via coregistration and previous FDG PET study dated 11/20/17, MRI of the brain report dated 02/04/19 reveal: SERUM GLUCOSE LEVEL: 140 mg/dl. HEIGHT: 66 inches. WEIGHT: 144 lbs. FINDINGS: 1. Redefined increased glucose metabolism is noted in the left mid anterior hemithorax pulmonary parenchyma, left upper lobe, generating a current calculated maximal standard uptake value of 1.2, compared to 2.5 defined on the FDG PET study dated 11/20/17. Quantitative criteria for neoplasm are not fulfilled. The maximal axial diameter of the corresponding parenchymal density on review of CT of the chest dated 02/13/19 is 6.3-mm (transverse). 2. Newly identified enhanced radiopharmaceutical is defined in the carinal level mediastinum, left thoracic perihilum with a calculated maximal standard uptake value of 3.3. Borderline quantitative criteria for viable neoplasm are fulfilled. The maximal axial diameter of the largest individual metabolic, morphologic abnormality is 31.5-mm (AP). 3. Several foci of increased FDG distribution are currently demonstrated in the left lateral neck involving level III generating a calculated maximal standard uptake value of 2.4. The maximal axial diameter of the largest individual hypermetabolic soft tissue density on review of CT of the neck dated 04/15/19 is 16.4-mm (AP). 4. Normal physiologic distribution of the radiopharmaceutical is apparent in the hepatic (3.3/3.6) and splenic parenchyma, both renal units, bladder and visualized intestinal tract. The visualized portion of the cerebral cortex demonstrate symmetric and preserved glucose metabolism. Diffuse radiopharmaceutical concentration is noted in all four quadrants of the abdomen and pelvis. Prominent radiopharmaceutical concentration is defined in the glenohumeral compartments of both shoulders most consistent with activated leukocytes associated with degenerative arthritis. Pertinent CT findings are as follows: CHEST: There are no additional parenchymal densities-nodules defined in the right and left hemithorax demonstrating discernible quantitatively significant increased FDG uptake. Apparent emphysematous change is noted in the bilateral upper lung zones. There is atherosclerotic calcification defined in the thoracic aorta without evidence of dilatation-aneurysm formation. Coronary arterial calcification is observed. Right-left subcentimeter axillary soft tissue densities are non-glucose avid. ABDOMEN AND PELVIS: Calcified granuloma formation is noted within the hepatic parenchyma. There is atherosclerotic calcification defined in the abdominal aorta without evidence of dilatation-aneurysm formation. Pelvic arterial calcification is observed. Right-left inguinal soft tissue densities with fatty hilus formation are non-glucose avid. Retroaortic subcentimeter soft tissue densities are ametabolic. Bilateral subcentimeter inguinal soft tissue densities reveal no evidence of increased FDG uptake. SKELETAL: Degenerative changes are noted in the cervical, thoracic and lumbar spine. PET/PET/CT Tumor Base -Thigh Subs IMPRESSION: 1. Increased glucose metabolism newly defined in the carinal level mediastinum, left thoracic perihilum fulfill borderline quantitative criteria for viable neoplasm. Histopathologic analysis may be indicated. If a conservative management approach is undertaken, repeat FDG PET imaging in 9-12 weeks is recommended to ensure stability, involution. 2. Multifocal increased FDG distribution noted in the left lateral neck fulfills borderline quantitative criteria for viable neoplasm. Histopathologic analysis may be indicated. 3. Mild increased glucose concentration persistently demonstrated in the left mid anterior lung field, left upper lobe, does not fulfill quantitative criteria for viable neoplasm. (Tia et al, Journal of Nuclear Medicine 43:302 P, 2002). 4. Overall, compared to the prior FDG PET study dated 11/20/17, the persistent metabolic abnormality noted in the left mid anterior lung field, does not fulfill quantitative criteria for viable neoplasm. Potential expression of viable neoplasm is currently defined in the left lateral neck and mediastinal structures which may necessitate histopathologic investigation. Electronic Signature Vitaly Lovell D.O. Electronically Signed: Vitaly Lovell DO at 22:24 EDT Tel , Service support ,
== END | disposition home or self-care (01) ==
LOC: ONC 09:37
PROVIDERS: Family Provider Family Medicine; PCP Family Medicine; Referring Provider Internal Medicine Hematology & Oncology; Visit Provider Internal Medicine Hematology & Oncology
DX: C33 Malignant neoplasm of trachea (principal); C34.80 Malignant neoplasm of overlapping sites of unspecified bronchus and lung
CPT/HCPCS: 78815; A9552

== ENCOUNTER → 2019-10-14 05:55 | Outpatient (CLI) | payer MEDICARE, BC, SELFPAY ==
[2019-03-21 12:48] VITALS: BMI 23.8
--- NOTE | 2019-10-14 08:46 | STRESSREP ---
Stress Test Report Pharmacologic myocardial perfusion stress test. 84-year-old lady with a history of chest pain. Medications: Atenolol, Synthroid, metformin, omeprazole. Stress protocol: Resting EKG demonstrates normal sinus rhythm with a rate of 61 beats minute normal intervals are noted resting blood pressures 116/80 mmHg. 0.4 mg of regadenoson was infused per usual protocol followed by Intravenous and flush injection continuous EKG monitoring was performed. The maximum heart rate attained was 88 bpm which was 64% maximum predicted heart rate the maximum workload was 1 metabolic equivalent. At rest there were no ST or T wave changes noted to suggest abnormal flow reserve. Myocardial perfusion protocol. 11.7 mCi of technetium 99m sestamibi was injected at rest. 0.4 mg of regadenoson was infused per usual protocol peak infusion 33.3 mCi of technetium 99m sestamibi was injected stress images were obtained stress and rest images were reconstructed and compared in the short axis vertical long horizontal long axis. Gated images were also obtained per Perfusion SPECT analysis: Review of the stress images demonstrate normal uptake of tracer noted in all areas of the myocardium the resting images similar demonstrate normal uptake of tracer noted in all areas of the myocardium. No reversibility is noted suggest ischemia. Gated SPECT analysis: The gated ejection fraction is 70%. Conclusion: Normal pharmacologic myocardial perfusion stress test. Preserved ejection fraction.
== END ==
PROVIDERS: PCP Family Medicine; Referring Provider Internal Medicine Cardiovascular Disease; Visit Provider Internal Medicine Cardiovascular Disease
DX: R07.9 Chest pain, unspecified (principal); I48.0 Paroxysmal atrial fibrillation; I27.21 Secondary pulmonary arterial hypertension
CPT/HCPCS: 78452; 93017; A9500; A4216; J2785

== ENCOUNTER → 2019-10-15 15:25 | Outpatient (CLI) | payer MEDICARE, BC, SELFPAY ==
[2019-10-15 14:31] VITALS: BMI 23.2
== END ==
PROVIDERS: PCP Family Medicine; Referring Provider Internal Medicine Cardiovascular Disease; Visit Provider Internal Medicine Cardiovascular Disease
DX: R07.9 Chest pain, unspecified (principal)
CPT/HCPCS: 36415; 84484

== ENCOUNTER → 2019-10-16 10:39 | Outpatient (CLI) | payer MEDICARE, BC, SELFPAY ==
[2019-10-15 14:31] VITALS: BMI 23.2
--- NOTE | 2019-10-16 10:41 | ECHOD_ITS ---
Reason For Study: CHEST PAIN Procedure This was a 2D Doppler, Color Flow transthoracic echocardiogram. Exam performed in department. Left Ventricle Normal LV size. The estimated ejection fraction is 55 %. Stage 1 diastolic dysfunction. No regional wall motion abnormalities noted. Right Ventricle Normal RV size. Normal systolic function. Atria Normal left atrium. Normal right atrium. Mitral Valve Normal mitral valve. Mild (1+) eccentric mitral valve insufficiency. Tricuspid Valve Normal tricuspid valve. Mild (1+) tricuspid valve insufficiency. Pulmonary artery systolic pressure is 68 mmHg. Aortic Valve Trisinus/trileaflet aortic valve. Mild (1+) aortic valve insufficiency. Pulmonic Valve Normal pulmonic valve. Great Vessels Normal aortic root. The pulmonary artery is normal size. Normal inferior vena cava. Pericardium/Pleural No pericardial effusion. MMode/2D Measurements & Calculations LVIDd: 3.6 cm IVSd: 1.1 cm Ao root diam: 2.8 cm LVIDs: 2.3 cm LVPWd: 0.98 cm RVDd: 4.6 cm FS: 35.2 % LAV(MOD-bp): 42.6 ml LA A4 area: 18.8 cm2 LA dimension(2D): 3.8 cm LAV(MOD-bp) Indexed: 24.4 ml/m2 LAV(MOD-sp2): 33.1 ml LAV(MOD-sp4): 52.0 ml RA A4 area: 14.8 cm2 Time Measurements MV dec time: 0.29 sec Doppler Measurements & Calculations MV E max gregor: 56.3 cm/sec Lat Peak E' Gregor: 3.9 cm/sec Med Peak E' Gregor: 3.5 cm/sec MV A max gregor: 80.5 cm/sec E/E' lat: 14.5 E/E' med: 15.9 MV E/A: 0.70 Ao V2 max: 106.3 cm/sec AI max gregor: 428.7 cm/sec LV V1 max: 81.0 cm/sec Ao max P.5 mmHg AI max P.5 mmHg LV V1 max P.6 mmHg AI dec slope: 247.5 cm/sec2 AI P1/2t: 507.3 msec PA V2 max: 87.8 cm/sec TR max gregor: 398.9 cm/sec TR max P.8 mmHg Interpretation Summary Normal LV size. The estimated ejection fraction is 55 %. Stage 1 diastolic dysfunction. Mild (1+) tricuspid valve insufficiency. Pulmonary artery systolic pressure is 68 mmHg. Mild (1+) aortic valve insufficiency. Compared to the previous the pulmonary pressures are higher The global longitudinal strain = -17.9 % (normal). Ordering Physician: Solomon Fuentes Referring Physician: GERMAIN MC Performed By: Adebayo, Ashlyn, RDCS, RVT
== END ==
PROVIDERS: PCP Family Medicine; Referring Provider Internal Medicine Cardiovascular Disease; Visit Provider Internal Medicine Cardiovascular Disease
DX: R07.9 Chest pain, unspecified (principal)
CPT/HCPCS: 93306